=== PATIENT | male | born 1970 | race African-American/Black ===

== ENCOUNTER 2024-05-04 17:31 | Inpatient (IN) | payer OTHER ==
[2024-05-04 18:32] LABS: Absolute Eosinophils 0.1 K/uL (0-0.5); Absolute Monocytes 0.6 K/uL (0.1-1.3); Absolute Neutrophil 5.9 K/uL (1.8-8.0); Anion Gap 8.5 mEq/L (5.0-15.0); Basophils % 0.4 % (0-1.3); Eosinophils % 1.9 % (0-4.4); Hematocrit 40.5 % (39.6-49.0); Hemoglobin 13.5 g/dL (13.6-17.9); Lymphocytes % 12.8 % (15.3-44.8); MCHC 33.2 g/dL (32.0-36.0); MCV 90.4 fL (80-100); MPV 7.8 fL (7.6-11.3); Magnesium 2.1 mg/dL (1.6-2.4); Monocytes % 7.4 % (3.3-12.3); Neutrophils % 77.5 % (41.7-73.7); Nucleated Red Blood Cells % 0.1 % (0-0); Platelets 181 thou/uL (152-406); Potassium 3.5 mEq/L (3.5-5.1); RBC Red Blood Cell Count 4.49 M/uL (4.33-5.43); Red Cell Distribution Width 15.4 % (12.1-15.2)
--- NOTE | 2024-05-04 19:21 | RAD REPORT ---
EXAMINATION: MRI BRAIN WITHOUT CONTRAST CLINICAL INDICATION: Male, 53 years old. WEAKNESS TECHNIQUE: Multiplanar multisequence MR images of the brain were obtained without intravenous contras t. Unless otherwise specified, incidental findings do not require dedicated imaging follow-up. [id number]. COMPARISON: No prior exam. FINDINGS: INTRACRANIAL: Moderate volume of likely late acute infarct present within the medial right frontal lo be in a distribution consistent with the anterior cerebral artery. The area of infarct has increased T2 hyperintensity and gyral edema. There is some subtle T2 hypointensity around the areas o f infarct that may reflect changes of early petechial hemorrhage. No left-sided infarcts identified. No hydrocephalus. No mass effect or midline shift. VASCULATURE: Possible absent right HAYDE flow void. The flow voids are intact. SINUSES: The paranasal sinuses and mastoid air cells are predominantly clear. BONE: The marrow signal pattern is within normal limits. IMPRESSION: Moderate-sized acute infarct centered in the medial right frontal lobe in a distribution of the right anterior cerebral artery. Suspect late acute/early subacute infarct. Question absent right A2 HAYDE flow void. CTA or MRA could confirm.
--- NOTE | 2024-05-04 19:29 | EDPHYS ---
Physician Documentation [facility] Name: Salvador Dunlap Age: 53 yrs Sex: Male : 1970 Arrival Date: 05/04/2024 Time: 17:31 Bed 2 Private MD: ED Physician Tamir Serrano HPI: 05/04 18:19 This 53 yrs old Black Male presents to ER via EMS with complaints of Weakness - left rn side. 18:19 The patient presents to the emergency department with weakness of the left lower rn extremity. Onset: The symptoms/episode began/occurred 6 day(s) ago. Severity of symptoms: At their worst the symptoms were moderate in the emergency department the symptoms are unchanged. The patient has experienced a previous episode. Patient reports left leg weakness that began 6 days ago. Not improving. Difficulty walking because of weakness. Denies weakness or numbness of the left upper extremity or face. No speech problem. No vision changes. No head injury. Patient reports has had a history of this happening once before, happened years ago and was attributed to pinched nerve in the back. Patient states he recovered after about 6 weeks of using crutches. No history of stroke or heart attack.. Historical: - Allergies: 17:39 FLORIAN INHIB[employer]ORS; ph - Home Meds: 17:39 sertraline 100 mg oral tablet 2 tabs daily [Active]; amlodipine 10 mg tablet 1 tab ph daily [Active]; hydrochlorothiazide 25 mg Oral tablet daily [Active]; losartan 100 mg oral tablet daily [Active]; metoprolol succinate 100 mg oral Tablet, Extended Release 24 hr 1 tab daily [Active]; - PMHx: 17:39 Hypertensive disorder; Depressive disorder; ph - Immunization history:: Adult Immunizations up to date. - Infectious Disease History:: Denies. - Social history:: Smoking status: unknown. - Family history:: not pertinent. - Hospitalizations: : No recent hospitalization is reported. ROS: 18:19 Constitutional: Negative for fever, chills, and weight loss, Neck: Negative for injury, rn pain, and swelling, Cardiovascular: Negative for chest pain, palpitations, and edema, Respiratory: Negative for shortness of breath, cough, wheezing, and pleuritic chest pain, Abdomen/GI: Negative for abdominal pain, nausea, vomiting, diarrhea, and constipation, Back: Negative for injury and pain, MS/Extremity: Negative for injury and deformity, Neuro: Positive for weakness of the left leg Exam: 18:19 Constitutional: This is a well developed, well nourished patient who is awake, alert, rn and in no acute distress. Cardiovascular: Regular rate and rhythm. No pulse deficits. MS/ Extremity: Pulses equal, no cyanosis. Neuro: Awake and alert, slow to respond but gives appropriate answers, GCS 15, oriented to person, place, time, and situation. Cranial nerves II-XII grossly intact. Motor strength 4/5 in all extremities except for left lower extremity which cannot be lifted off of bed and slightly decreased left medical claims examiner strength of left arm. Sensory grossly intact. Vital Signs: 17:33 BP 146 / 93; Pulse 87; Resp 18; Temp 97.5; Pulse Ox 97% on R/A; Weight 95.25 kg; Height ph 6 ft. 0 in. ; 19:50 BP 129 / 93; Pulse 72; Resp 16 S; Temp 98.3(TE); Pulse Ox 97% on R/A; Pain 3/10; mt4 20:30 BP 122 / 78; Pulse 67; Resp 16; Pulse Ox 100% on R/A; Pain 0/10; mt4 22:30 BP 137 / 91; Pulse 68; Resp 18; Pulse Ox 100% on R/A; Pain 0/10; mt4 17:33 Body Mass Index 28.48 (95.25 kg, 182.88 cm) ph 19:50 Pain Scale: Adult mt4 20:30 Pain Scale: Adult mt4 22:30 Pain Scale: Adult mt4 NIH Stroke Scale Scores: 18:18 NIHSS Score: 2 ph 19:35 NIHSS Score: 5 rn [place] Coma Score: 19:50 Eye Response: spontaneous(4). Motor Response: obeys commands(6). Verbal Response: mt4 oriented(5). Total: 15. MDM: 17:39 Patient medically screened. rn 19:26 Data reviewed: vital signs, nurses notes, lab test result(s), radiologic studies, CT rn scan, MRI, and as a result, I will discharge patient. Consideration of Admission/Observation Patient was admitted/placed on observation. Escalation of care including admission/observation considered. Care significantly affected by the following chronic conditions: Hypertension. Counseling: I had a detailed discussion with the patient and/or guardian regarding the historical points, exam findings, and any diagnostic results supporting the discharge/admit diagnosis, lab results, radiology results, the need for further work-up and treatment in the hospital, the need to transfer to another facility, for higher level of care, [facility] does not immediately have the required specialist. ED course: Patient with subacute stroke, per report and patient's story possibly 6 days into his stroke. Is ischemic but moderate-sized. No previous stroke or stroke workup. Will attempt transfer to [facility] for stroke workup as patient is a prisoner and under managed care.. 19:48 ED course: Patient with subacute stroke on MRI. Attempted transfer to [facility] as patient rn is presenter. [facility] system does not have any open beds, they state to admit for stroke workup at our facility if capable and then patient can be discharged to nursing home after workup and medication optimization. Spoke with Dr. Pollard and takes patient for admission for stroke workup and neuroconsult.. 05/04 17:44 Order name: CBC with Diff; Complete Time: 18:54 rn 05/04 17:44 Order name: Basic Metabolic Panel; Complete Time: 18:54 rn 05/04 17:44 Order name: Magnesium; Complete Time: 18:54 rn 05/04 19:59 Order name: Urinalysis w/ reflexes [facility] 05/04 19:59 Order name: Basic Metabolic Panel [facility] 05/04 19:59 Order name: CBC with Automated Diff [facility] 05/04 19:59 Order name: CBC with Automated Diff [facility] 05/04 19:59 Order name: Lipid Profile [facility] 05/04 19:59 Order name: Lipid Profile [facility] 05/04 20:20 Order name: Urinalysis w/ reflexes [facility] 05/04 20:27 Order name: Hemoglobin A1c; Complete Time: 03:44 [facility] 05/04 20:28 Order name: ABG Arterial Blood Gas; Complete Time: 03:44 [facility] 05/04 20:28 Order name: Ammonia; Complete Time: 03:44 [facility] 05/04 20:28 Order name: Lactate w/ 2H reflex if indic.; Complete Time: 03:44 [facility] 05/04 20:28 Order name: Troponin High Sensitivity; Complete Time: 03:44 [facility] 05/05 04:07 Order name: Glucose, Ancillary Testing [facility] 05/04 17:54 Order name: Brain Wo Cont MRI; Complete Time: 19:26 rn 05/04 17:54 Order name: MRI Lumbar Spine wo Con; Complete Time: 19:52 rn 05/04 20:20 Order name: Echo with Doppler [facility] 05/04 22:27 Order name: Head angio [facility] 05/04 22:27 Order name: Neck Angio [facility] 05/04 20:28 Order name: Occupational Therapy Consult [facility] 05/04 20:28 Order name: Physical Therapy Consult [facility] 05/04 20:28 Order name: Speech Therapy Consult [facility] 05/05 03:44 Order name: EKG; Complete Time: 03:44 sp4 05/04 17:44 Order name: IV Start; Complete Time: 18:17 rn 05/04 17:44 Order name: Cardiac monitoring; Complete Time: 18:17 rn 05/04 17:44 Order name: O2 Sat Monitoring; Complete Time: 17:49 rn 05/05 03:44 Order name: EKG - Nurse/Tech; Complete Time: 03:50 sp4 Administered Medications: 19:49 Drug: Aspirin PO 325 mg PO once Route: PO; mt4 22:30 Follow up: Response: No adverse reaction mt4 19:49 Drug: foLIC Acid IVPB 1 mg IVPB once Route: IVPB; Site: right antecubital; mt4 22:29 Follow up: Response: No adverse reaction mt4 22:29 Follow up: IV Status: Completed infusion kb3 19:49 Drug: NS 0.9% IV 1000 ml IV at 1000 ml once; to be given as a bolus over 60 minutes mt4 Route: IV; Rate: 1000 ml; Site: right antecubital; 22:29 Follow up: Response: No adverse reaction; IV Status: Completed infusion; IV Intake: mt4 1000ml Point of Care Testing: Blood Glucose: 05/05 05:26 Blood Glucose: 129 mg/dL; mt4 Ranges: Critical Glucose Levels:Adult <50 mg/dl or >400 mg/dl <40 mg/dl or >180 mg/dl Disposition Summary: 05/04/24 19:52 Hospitalization Ordered Notes: Hospitalization Status: Inpatient Admission rn Provider: Prince Latrice rn Condition: Stable(05/04/24 19:52) rn Problem: new(05/04/24 19:52) rn Symptoms: are unchanged(05/04/24 19:52) rn Bed/Room Type: Standard rn Location: Telemetry/MedSurg (Inpatient)(05/05/24 02:29) ha1 Room Assignment: 219(05/05/24 02:29) ha1 Diagnosis - Cerebral infarction, unspecified(05/04/24 19:52) rn - Weakness(05/04/24 19:52) rn Forms: - Medication Reconciliation Form rn - SBAR form rn - Leadership Thank You Letter rn NIH Stroke Scale - NIH Stroke Score Date: 05/04/2024 Time: 18:18 Total Score = 2 10. Dysarthria (speech clarity - read or repeat words) - 0(Normal) 11. Extinction and Inattention (visual/tactile/auditory/spatial/personal) - 0(No abnormality) 1a. Level of Consciousness (LOC) - 0(Alert) 1b. Level of Consciousness (LOC) (Month \T\ Age) - 0(Both) 1c. LOC Commands (Open \T\ Closes Eyes/Packing And Shipping Clerk) - 0(Both) 2. Best Gaze (Lateral Gaze Paresis) - 0(Normal) 3. Visual Field Loss - 0(No visual loss) 4. Facial Palsy - 0(Normal) 5a. Left Arm: Motor (10-second hold) - 1(Drift) 5b. Right Arm: Motor (10-second hold) - 1(Drift) 6a. Left Leg: Motor (5-second hold - always test supine) - 0(No drift) 6b. Right Leg: Motor (5-second hold - always test supine) - 0(No drift) 7. Limb Ataxia (finger/nose \T\ heel/glez - test with eyes open) - 0(Absent) 8. Sensory Loss (pinprick arms/legs/face) - 0(Normal) 9. Best Language: Aphasia (description/naming/reading) - 0(No aphasia) Initials: ph NIH Stroke Scale - NIH Stroke Score Date: 05/04/2024 Time: 19:35 Total Score = 5 10. Dysarthria (speech clarity - read or repeat words) - 0(Normal) 11. Extinction and Inattention (visual/tactile/auditory/spatial/personal) - 0(No abnormality) 1a. Level of Consciousness (LOC) - 1(Not Alert) 1b. Level of Consciousness (LOC) (Month \T\ Age) - 0(Both) 1c. LOC Commands (Open \T\ Closes Eyes/Packing And Shipping Clerk) - 0(Both) 2. Best Gaze (Lateral Gaze Paresis) - 0(Normal) 3. Visual Field Loss - 0(No visual loss) 4. Facial Palsy - 0(Normal) 5a. Left Arm: Motor (10-second hold) - 1(Drift) 5b. Right Arm: Motor (10-second hold) - 0(No drift) 6a. Left Leg: Motor (5-second hold - always test supine) - 3(No effort against gravity) 6b. Right Leg: Motor (5-second hold - always test supine) - 0(No drift) 7. Limb Ataxia (finger/nose \T\ heel/glez - test with eyes open) - 0(Absent) 8. Sensory Loss (pinprick arms/legs/face) - 0(Normal) 9. Best Language: Aphasia (description/naming/reading) - 0(No aphasia) Initials: rn Signatures: Dispatcher [employer] EDMS Tamir Serrano MD MD rn Hall, Patricia, RN RN ph Ayala, Heidy, RN RN ha1 Otis Sands MD MD sp4 Pia Erickson RN RN mt4 Elo Thompson RN kb3 Corrections: (The following items were deleted from the chart) 05/04 17:44 17:44 Head Brain Wo Cont+CT.RAD.BRZ ordered. EDMS EDMS 17:45 17:44 Spine Lumbar Wo Con+CT.RAD.BRZ ordered. EDMS EDMS 17:45 17:45 CBC+H.LAB.BRZ ordered. EDMS EDMS 17:45 17:45 BASIC METABOLIC PANEL+C.LAB.BRZ ordered. EDMS EDMS 17:45 17:45 MAGNESIUM+C.LAB.BRZ ordered. EDMS EDMS 19:28 18:19 Constitutional: This is a well developed, well nourished patient who is rn awake, alert, and in no acute distress. Cardiovascular: Regular rate and rhythm. No pulse deficits. MS/ Extremity: Pulses equal, no cyanosis. Neuro: Awake and alert, slow to respond but gives appropriate answers, GCS 15, oriented to person, place, time, and situation. Cranial nerves II-XII grossly intact. Motor strength 4/5 in all extremities except for left lower extremity which cannot be lifted off of bed. Sensory grossly intact. rn 19:28 rn rn 19:28 [facility]-System rn rn 19:28 Higher level of care rn rn 19:28 Stable rn rn 19:28 new rn rn 19:28 are unchanged rn rn 19:28 Cerebral infarction, unspecified rn rn 19:28 Weakness rn rn 05/05 00:44 05/04 19:52 Telemetry/MedSurg (Inpatient) rn ha1 05/05 00:44 05/04 19:52 rn ha1 05/05 02:29 00:44 [facility] ER HOLD ha1 ha1 02: 00:44 ERHOLD- ha1 ha1
--- NOTE | 2024-05-04 19:29 | ER ---
Nurse's Notes [facility] Name: Salvador Dunlap Age: 53 yrs Sex: Male : 1970 Arrival Date: 05/04/2024 Time: 17:31 Bed 2 Private MD: Diagnosis: Cerebral infarction, unspecified;Weakness Presentation: 05/04 17:33 Chief complaint: EMS states: Pt [facility], c/o L sided weakness and difficulty ph ambulating x 6 days, VSS. Coronavirus screen: Vaccine status: Patient reports receiving the 2nd dose of the covid vaccine. Ebola Screen: No symptoms or risks identified at this time. No acute neurological deficit is noted. Pre-hospital glucose is not applicable to this patient. Initial Sepsis Screen: Does the patient meet any 2 criteria? No. Patient's initial sepsis screen is negative. Does the patient have a suspected source of infection? No. Patient's initial sepsis screen is negative. Risk Assessment: Do you want to hurt yourself or someone else? Patient reports no desire to harm self or others. Onset of symptoms was May 04, 2024. 17:33 Method Of Arrival: EMS: [facility] 17:33 Acuity: HOME 3 ph Triage Assessment: 17:42 The onset of the patients symptoms was April 28, 2024 at 12:00. General: Appears in ph no apparent distress. Behavior is calm, cooperative, quiet. Pain: Denies pain. Neuro: Level of Consciousness is awake, alert, obeys commands, Oriented to person, place, time, situation, Reports weakness in left arm and left leg. Cardiovascular: Capillary refill < 3 seconds in bilateral fingers Patient's skin is warm and dry. Respiratory: Airway is patent Respiratory effort is even, unlabored. Derm: Skin is pink, warm \T\ dry. Stroke Activation: Symptom onset > 6 hours Physician: ED Attending; Name: ; Notified At: ; Arrived At: Physician: Mid-Level Provider; Name: ; Notified At: ; Arrived At: Physician: [not used]; Name: ; Notified At: ; Arrived At: Physician: [not used]; Name: ; Notified At: ; Arrived At: Physician: [not used]; Name: ; Notified At: ; Arrived At: Historical: - Allergies: 17:39 FLORIAN INHIBITORS; ph - Home Meds: 17:39 sertraline 100 mg oral tablet 2 tabs daily [Active]; amlodipine 10 mg tablet 1 tab ph daily [Active]; hydrochlorothiazide 25 mg Oral tablet daily [Active]; losartan 100 mg oral tablet daily [Active]; metoprolol succinate 100 mg oral Tablet, Extended Release 24 hr 1 tab daily [Active]; - PMHx: 17:39 Hypertensive disorder; Depressive disorder; ph - Immunization history:: Adult Immunizations up to date. - Infectious Disease History:: Denies. - Social history:: Smoking status: unknown. - Family history:: not pertinent. - Hospitalizations: : No recent hospitalization is reported. Screenin:19 [facility] ED Fall Risk Assessment (Adult) History of falling in the last 3 months, ph including since admission No falls in past 3 months (0 pts) Confusion or Disorientation No (0 pts) Intoxicated or Sedated No (0 pts) Impaired Gait Yes (1 pt) Mobility Assist Device Used No (0 pt) Altered Elimination No (0 pt) Score/Fall Risk Level 0 - 2 = Low Risk Oriented to surroundings, Maintained a safe environment, Hourly rounding (assess needs \T\ fall precautionary measures) done. Abuse screen: Denies threats or abuse. Denies injuries from another. Nutritional screening: No deficits noted. Tuberculosis screening: No symptoms or risk factors identified. Assessment: 18:18 VAN Scoring: Arm Drift: Minor drift Visual Disturbance: No visual disturbance noted. [facility] Swallow Protocol Exclusion Criteria: Unable to remain alert for testing: No NPO for medical/surgical reason by provider order No Tracheostomy tube present No No thin liquids due to preexisting dysphagia/baseline modified diet thickened liquids No Exclusion Criteria Result: Proceed Brief Cognitive Screen What is your name? Normal, Where are you right now? Normal, What year is it? Normal. Oral Mechanism Examination Facial Symmetry: Normal, Motion: Normal, Lip Closure: Normal, Oral Mechanism Result: Normal. 3 oz Water Swallow Challenge: Pt able to drink all water without stopping, coughing, choking or throat clearing: Yes Result: CECIL MALONEY Notified: Tamir Serrano MD. TNKase (Tenecteplase) Screening: Contraindications: Patient reports onset of signs and symptoms of stroke greater than 6 hours ago: Yes. 18:20 General: SEE TRIAGE ASSESSMENT. ph 19:50 General: Appears in no apparent distress. comfortable, Behavior is calm. Pain: mt4 Complains of pain in back Quality of pain is described as aching. Neuro: Level of Consciousness is awake, alert, obeys commands, Oriented to person, place, time, situation, Upfitter are weak on left Speech is normal, Facial symmetry appears normal. Cardiovascular: Capillary refill < 3 seconds Patient's skin is warm and dry. Respiratory: Airway is patent Respiratory effort is even, unlabored, Respiratory pattern is regular, symmetrical. GI: No signs and/or symptoms were reported involving the gastrointestinal system. : No signs and/or symptoms were reported regarding the genitourinary system. Derm: Skin is intact, Skin is dry, Skin is pink, warm \T\ dry. Skin temperature is warm. Musculoskeletal: Range of motion: limited in left knee and left ankle. 05/05 03:09 Reassessment: notified hospitalist Latrice obando mt4 Vital Signs: 05/04 17:33 BP 146 / 93; Pulse 87; Resp 18; Temp 97.5; Pulse Ox 97% on R/A; Weight 95.25 kg; Height ph 6 ft. 0 in. ; 19:50 BP 129 / 93; Pulse 72; Resp 16 S; Temp 98.3(TE); Pulse Ox 97% on R/A; Pain 3/10; mt4 20:30 BP 122 / 78; Pulse 67; Resp 16; Pulse Ox 100% on R/A; Pain 0/10; mt4 22:30 BP 137 / 91; Pulse 68; Resp 18; Pulse Ox 100% on R/A; Pain 0/10; mt4 17:33 Body Mass Index 28.48 (95.25 kg, 182.88 cm) ph 19:50 Pain Scale: Adult mt4 20:30 Pain Scale: Adult mt4 22:30 Pain Scale: Adult mt4 Viola Coma Score: 19:50 Eye Response: spontaneous(4). Motor Response: obeys commands(6). Verbal Response: mt4 oriented(5). Total: 15. NIH Stroke Scale Scores: 18:18 NIHSS Score: 2 ph 19:35 NIHSS Score: 5 corporate intern Course: 17:32 Patient arrived in ED. ph 17:39 Tamir Serrano MD is Attending Physician. rn 17:39 Triage completed. ph 17:43 Arm band placed on Patient placed in an exam room, on a stretcher. ph 18:17 Annalise Hensley RN is Primary Nurse. ph 18:17 CBC with Diff Sent. ph 18:17 Basic Metabolic Panel Sent. ph 18:17 Magnesium Sent. ph 18:17 Initial lab(s) drawn, by me, sent to lab. Missed attempt(s): 22 gauge in left ph antecubital area. Bleeding controlled, band aid applied, catheter tip intact. Inserted saline lock: 20 gauge in right antecubital area, using aseptic technique. Blood collected. Flushed with 10 mL NS. 18:20 Patient has correct armband on for positive identification. Bed in low position. Call ph light in reach. Side rails up X2. Guards at bedside. residential monitor on. Pulse ox on. NIBP on. 19:05 Brain Wo Cont MRI In Process Unspecified. EDMS 19:05 MRI Lumbar Spine wo Con In Process Unspecified. EDMS 19:35 initiated transfer with [facility]. spoke with Eulalia. vk 19:37 Per transfer center there are no available Med/Tele beds and we could transfer patient vk to a different facility to please call back with facility of choice. 19:50 No apparent distress. Resting quietly. mt4 19:50 Provided Education on: medication education . Client placed on continuous cardiac and mt4 pulse oximetry monitoring. NIBP monitoring applied. residential monitor on. Pulse ox on. Lights dimmed. Warm blanket given. Pillow given. Verbal reassurance given. Head of bed elevated. 19:50 No provider procedures requiring assistance completed. IV is intact, with fluids mt4 infusing freely. Patient maintains SpO2 saturation greater than 95% on room air. 19:52 Prince Pollard MD is Hospitalizing Provider. rn 05/05 00:01 authorization number to admit [id number] per [facility] transfer center spoke with chidi. vk 05:26 Patient admitted, IV remains in place. mt4 Administered Medications: 05/04 19:49 Drug: Aspirin PO 325 mg PO once Route: PO; mt4 22:30 Follow up: Response: No adverse reaction mt4 19:49 Drug: foLIC Acid IVPB 1 mg IVPB once Route: IVPB; Site: right antecubital; mt4 22:29 Follow up: Response: No adverse reaction mt4 22:29 Follow up: IV Status: Completed infusion kb3 19:49 Drug: NS 0.9% IV 1000 ml IV at 1000 ml once; to be given as a bolus over 60 minutes mt4 Route: IV; Rate: 1000 ml; Site: right antecubital; 22:29 Follow up: Response: No adverse reaction; IV Status: Completed infusion; IV Intake: mt4 1000ml Medication: 18:20 VIS not applicable for this client. ph Point of Care Testing: Blood Glucose: 05/05 05:26 Blood Glucose: 129 mg/dL; mt4 Ranges: Intake: 05/04 22:29 IV: 1000ml; Total: 1000ml. mt4 Outcome: 19:28 ER care complete, transfer ordered by . rn 19:52 Decision to Hospitalize by Provider. rn 05/05 05:26 Admitted to Med/surg mt4 Admitted to Med/surg accompanied by nurse, via stretcher, room 219, Condition: stable Instructed on the need for admit, 05:27 Patient left the ED. mt4 NIH Stroke Scale - NIH Stroke Score Date: 05/04/2024 Time: 18:18 Total Score = 2 10. Dysarthria (speech clarity - read or repeat words) - 0(Normal) 11. Extinction and Inattention (visual/tactile/auditory/spatial/personal) - 0(No abnormality) 1a. Level of Consciousness (LOC) - 0(Alert) 1b. Level of Consciousness (LOC) (Month \T\ Age) - 0(Both) 1c. LOC Commands (Open \T\ Closes Eyes/Business Planning Manager) - 0(Both) 2. Best Gaze (Lateral Gaze Paresis) - 0(Normal) 3. Visual Field Loss - 0(No visual loss) 4. Facial Palsy - 0(Normal) 5a. Left Arm: Motor (10-second hold) - 1(Drift) 5b. Right Arm: Motor (10-second hold) - 1(Drift) 6a. Left Leg: Motor (5-second hold - always test supine) - 0(No drift) 6b. Right Leg: Motor (5-second hold - always test supine) - 0(No drift) 7. Limb Ataxia (finger/nose \T\ heel/glez - test with eyes open) - 0(Absent) 8. Sensory Loss (pinprick arms/legs/face) - 0(Normal) 9. Best Language: Aphasia (description/naming/reading) - 0(No aphasia) Initials: dayan NIH Stroke Scale - NIH Stroke Score Date: 05/04/2024 Time: 19:35 Total Score = 5 10. Dysarthria (speech clarity - read or repeat words) - 0(Normal) 11. Extinction and Inattention (visual/tactile/auditory/spatial/personal) - 0(No abnormality) 1a. Level of Consciousness (LOC) - 1(Not Alert) 1b. Level of Consciousness (LOC) (Month \T\ Age) - 0(Both) 1c. LOC Commands (Open \T\ Closes Eyes/Business Planning Manager) - 0(Both) 2. Best Gaze (Lateral Gaze Paresis) - 0(Normal) 3. Visual Field Loss - 0(No visual loss) 4. Facial Palsy - 0(Normal) 5a. Left Arm: Motor (10-second hold) - 1(Drift) 5b. Right Arm: Motor (10-second hold) - 0(No drift) 6a. Left Leg: Motor (5-second hold - always test supine) - 3(No effort against gravity) 6b. Right Leg: Motor (5-second hold - always test supine) - 0(No drift) 7. Limb Ataxia (finger/nose \T\ heel/glez - test with eyes open) - 0(Absent) 8. Sensory Loss (pinprick arms/legs/face) - 0(Normal) 9. Best Language: Aphasia (description/naming/reading) - 0(No aphasia) Initials: rn Signatures: Dispatcher [employer] Tamir Boykin MD MD rn Hall, Patricia, RN RN ph Bradberry, Kelly, NEMO RN 3 April Slater Molinec, RN RN mt4
[2024-05-04] MEDS ORDERED: ASPIRIN 325 MG TAB ONE ×2 (19:34→19:44)
[2024-05-04] MEDS ORDERED: FOLIC ACID 5 MG/ML VIAL ONE (19:35)
[2024-05-04] MEDS ORDERED: NA CHLORIDE 0.9% 1,000 ML ONE (19:36)
--- NOTE | 2024-05-04 19:49 | RAD REPORT ---
EXAMINATION: Lumbar Spine Wo Con CLINICAL INDICATION: Male, 53 years old. WEAKNESS TECHNIQUE: Multiplanar multisequence MR images were obtained of the lumbar spine without intravenous contrast. Unless otherwise specified, incidental findings do not require dedicated imaging follow-up. [id number]. COMPARISON: No prior exam. FINDINGS: For purposes of this dictation, it is assumed that there are 5 non rib-bearing lumbar type vertebrae, and the most caudal fully segmented lumbar vertebra is labeled L5. ALIGNMENT: The lumbar spine has normal alignment. BONE: Vertebral bodies are normal in height. Heterogeneous marrow signal.. CORD: No abnormal signal in the cord. The conus medullaris terminates at a normal level. The nerve ro ots of the cauda equina appear normal. SOFT TISSUE: The included paraspinal soft tissues and retroperitoneal structures are grossly normal. EVALUATION OF THE INDIVIDUAL LEVELS: L1-L2 :Disc is normal in height and signal intensity. No significant spinal canal or neural foraminal stenosis. L2-L3: Disc is normal in height and signal intensity. No significant spinal canal or neural foraminal stenosis. L3-L4: Disc is normal in height and signal intensity. No significant spinal canal or neural foraminal stenosis. L4-L5: Broad-based disc bulge with facet and ligamentum flavum hypertrophy results in moderate centr al spinal stenosis. Bilateral subarticular zone stenosis, left greater than right. Both neural foramen are moderately narrowed. L5-S1: Broad-based disc bulge with facet and ligamentum flavum hypertrophy without significant centra l spinal stenosis. The left neural foramen is severely narrowed. The right neural foramen has moderate to severe narrowing. IMPRESSION: Multilevel degenerative disc disease which is most advanced at L4-5 where there is moderate central s asaf stenosis, moderate bilateral neural foraminal narrowing, and subarticular zone narrowing. There is also severe left neural foraminal narrowing at L5-S1. Either level could explain a left-side d radiculopathy. The patient is known to have a moderate sized right HAYDE infarct which is the likely etiology if left sided weakness is acute.
[2024-05-04] MEDS ORDERED: ONDANSETRON 4 MG/2 ML VIAL IV PRN (19:54)
--- NOTE | 2024-05-04 20:24 | P.HP ---
Certification for Inpatient Patient admitted to: Observation With expected LOS: <2 Midnights Practitioner: I am a practitioner with admitting privileges, knowledge of patient current condition, hospital course, and medical plan of care. Services: Services provided to patient in accordance with Admission requirements found in Title 42 Section 412.3 of the Code of Federal Regulations Patient History Date of Service: 05/04/24 Reason for admission: CVA History of Present Illness: Patient is a 53-year-old -[place] male currently in custody. He presented to the ER with left-sided weakness ongoing for more than 6 hours. Patient was only brought in today for evaluation. As per ER signout, this began 6 days ago. Patient has been having difficulty walking because of weakness. Workup in the ER revealed a subacute stroke. His vital signs were stable including a blood pressure 146/93. During my evaluation, patient was very lethargic. According to elicit any response. Allergies FLORIAN Inhibitors Allergy (Unknown, Verified 05/04/24 21:43) Itching/Hives/Rash Physical Examination - Physical Exam General: Other (Somnolent and lethargic) HEENT: Atraumatic, Normocephalic Respiratory: Clear to auscultation bilaterally, Normal air movement Cardiovascular: No edema, Normal pulses, Regular rate/rhythm, Systolic murmur Musculoskeletal: No clubbing, No swelling, No contractures, No erythema, No tenderness Neurological: Abnormal speech, Abnormal strength - Studies Laboratory Data (last 24 hrs) 05/04/24 05/04/24 18:15 18:15 WBC 7.70 Hgb 13.5 L Hct 40.5 Plt Count 181 Sodium 138 Potassium 3.5 BUN 21 H Creatinine 0.93 Glucose 130 H Magnesium 2.1 Assessment and Plan - Problems (Diagnosis) (1) CVA (cerebral vascular accident) Current Visit: Yes Status: Acute - Plan Assessment This is a 53-year-old male presenting with left-sided weakness that started 6 days ago. Brain MRI revealed a moderately sized acute infarct involving the right frontal lobe in the anterior cerebral artery distribution. Patient continued to have left lower extremity weakness, which the radiologist attributes to his acute stroke. He also had a lumbar MRI which revealed severe lumbar stenosis. 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
[2024-05-04] MEDS: ATORVASTATIN 80 MG TAB PO SCH (21:00)
[2024-05-04] MEDS: D5 0.45 NS 1,000 ML IV SCH (21:00)
[2024-05-04 21:28] LABS: Arterial Blood Carboxyhemoglob 0.9 % (0-1.5); Blood Gas Oxyhemoglobin 93.1 % (94-97); Blood Gas THB 12.7 g/dl (12-18); Blood O2 Saturation 94.7 % (92-98.5)
[2024-05-05] MEDS: HEPARIN 5000 UNIT/ML 1 ML VIAL SQ SCH (01:00)
[2024-05-05] MEDS ORDERED: HEPARIN 5000 UNIT/ML 1 ML VIAL ONE (03:19)
[2024-05-05] MEDS ORDERED: ATORVASTATIN 40 MG TAB ONE (03:19)
[2024-05-05 04:13] VITALS: BMI 31.4
[2024-05-05 05:39] LABS: Renal Epithelial <5 /HPF (None Seen); Sqamous Epithelial <5 /HPF (None Seen); Urine Bacteria None Seen /HPF (<20); Urine Bilirubin NEGATIVE (Negative); Urine Blood Negative (Negative); Urine Clarity Clear (Clear); Urine Color Yellow (Yellow); Urine Culture Reflex Order NOT NEEDED; Urine Glucose NEGATIVE (Negative); Urine Ketones NEGATIVE (Negative); Urine Microscopic Reflex YN ORDER UMIC; Urine Mucus Slight /HPF (None Seen); Urine Nitrite NEGATIVE (Negative); Urine Protein 1+ (Negative); Urine RBC <5 /HPF (None Seen); Urine Urobilinogen 1+ (Normal); Urine WBC <5 /HPF (<5)
[2024-05-05 05:40] LABS: Specific Gravity > 1.030 (1.005-1.030)
[2024-05-05 05:48] LABS: Absolute Eosinophils 0.3 K/uL (0-0.5); Absolute Lymphocytes (CBC) 1.4 K/uL (0.7-4.9); Absolute Monocytes 0.6 K/uL (0.1-1.3); Absolute Neutrophil 4.3 K/uL (1.8-8.0); Basophils % 0.4 % (0-1.3); Eosinophils % 4.1 % (0-4.4); Hematocrit 35.9 % (39.6-49.0); Hemoglobin 11.8 g/dL (13.6-17.9); Lymphocytes % 20.7 % (15.3-44.8); MCH 29.6 pg (27.0-35.0); MCHC 32.8 g/dL (32.0-36.0); MCV 90.1 fL (80-100); MPV 8.5 fL (7.6-11.3); Monocytes % 9.2 % (3.3-12.3); Neutrophils % 65.6 % (41.7-73.7); Platelets 171 thou/uL (152-406); RBC Red Blood Cell Count 3.98 M/uL (4.33-5.43); Red Cell Distribution Width 15.4 % (12.1-15.2)
[2024-05-05 06:04] LABS: Anion Gap 6.7 mEq/L (5.0-15.0); Potassium 3.7 mEq/L (3.5-5.1)
--- NOTE | 2024-05-05 07:39 | RAD REPORT ---
EXAMINATION: CTA HEAD CLINICAL INDICATION: CVA TECHNIQUE: Axial CT images were obtained through the head after intravenous contrast utilizing angiog raphic protocol with 3D post-processing (maximum intensity projection images, volume rendered images and/or shaded surface rendered images). One or more of the following dose reduction technique s were used: Automated exposure control, adjustment of the mA and/or kV according to patient size, and/or iterative reconstruction. Unless otherwise specified, incidental findings do not require dedic ated imaging follow-up. COMPARISON: MRI brain 05/04/2024 FINDINGS: ICA: The petrous, cavernous, and supraclinoid segments of the bilateral internal carotid arteries are normal. The ophthalmic artery origins are visualized and normal. The posterior communicating arteries are patent. HAYDE: There is abrupt narrowing of the right A2 segment compatible with occlusion. Left A2 segment and anterior communicating artery are patent. MCA: Middle cerebral arteries are normal bilaterally. MATERIALS HANDLER: Posterior cerebral arteries are normal bilaterally. Vertebrobasilar: The vertebral arteries are patent. The basilar artery is normal in appearance. 3D images confirm these findings. IMPRESSION: Abrupt narrowing of the proximal right A1 segment compatible with occlusion.
--- NOTE | 2024-05-05 07:42 | RAD REPORT ---
EXAMINATION: CTA NECK CLINICAL INDICATION: CVA TECHNIQUE: Axial CT images were obtained from the aortic arch to the skull base after intravenous con trast utilizing angiographic protocol with 3D post-processing (maximum intensity projection images, volume rendered images and/or shaded surface rendered images). One or more of the following dose redu ction techniques were used: Automated exposure control, adjustment of the mA and/or kV according to patient size, and/or iterative reconstruction. Unless otherwise specified, incidental findings do not require dedicated imaging follow-up. 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 CCA: The common carotid arteries are patent and normal in caliber. ICA/ECA: Focal hard plaque is present right carotid bulb with estimated focal stenosis of 50%. Focal soft plaque is present in left carotid bulb with estimated stenosis of 40-50%. VERTEBRAL: The cervical vertebral arteries are patent. The vertebral arteries are codominant. SOFT TISSUE: No significant neck soft tissue abnormalities. The visualized lung apices are clear. 3D images confirm these findings. IMPRESSION: Mild bilateral carotid bulb stenosis as detailed above. NASCET criteria used. Mild 0-49% stenosis Moderate 50-69% stenosis Severe 70-99% stenosis
[2024-05-05] MEDS: AMLODIPINE 5 MG TAB PO ONE (12:11)
--- NOTE | 2024-05-05 13:39 | P.CNS ---
Date of Consult: 05/05/24 Chief Complaint: CVA History of Present Illness: Patient with PMH of Hypertension was admitted to the hospital with a stroke, cardiology was consulted for elevated troponin, patient denies having any active chest pain, report that he had one episode of chest pain last Wednesday, no pa lpitations, no dizzy spells, no syncope, no SOB, no BROOKS. Allergies FLORIAN Inhibitors Allergy (Unknown, Verified 05/04/24 21:43) Itching/Hives/Rash Home medications list reviewed: Yes Home Medications: Amlodipine [Norvasc*] 10 mg PO DAILY 05/05/24 Metoprolol/Hydrochlorothiazide [Metoprolol-Hctz 50-25 mg Tab] 50 mg PO DAILY 05/05/24 hydroCHLOROthiazide [Hydrochlorothiazide] 20 mg PO DAILY 05/05/24 - Past Medical/Surgical History Diabetic: No - Social History Smoking Status: Unknown if ever smoked Alcohol use: No CD- Drugs: No Caffeine use: No Review of Systems 10-point ROS is otherwise unremarkable Physical Examination Temp Pulse Resp BP Pulse Ox 98.5 F 77 16 148/92 H 97 05/05/24 12:08 05/05/24 12:11 05/05/24 12:08 05/05/24 12:11 05/05/24 12:08 General: Alert, In no apparent distress HEENT: Atraumatic, PERRLA, Mucous membr. moist/pink, EOMI, Sclerae nonicteric Neck: Supple, 2+ carotid pulse no bruit, No LAD, Without JVD or thyroid abnormality Respiratory: Clear to auscultation bilaterally, Normal air movement Cardiovascular: Regular rate/rhythm, Normal S1 S2 Gastrointestinal: Normal bowel sounds, No tenderness Musculoskeletal: No tenderness Integumentary: No rashes Neurological: Normal gait, Normal speech, Normal tone, Normal affect Lymphatics: No axilla or inguinal lymphadenopathy Laboratory Data (last 24 hrs) 05/04/24 05/04/24 18:15 18:15 WBC 7.70 Hgb 13.5 L Hct 40.5 Plt Count 181 Sodium 138 Potassium 3.5 BUN 21 H Creatinine 0.93 Glucose 130 H Magnesium 2.1 - Problems (1) NSTEMI (non-ST elevated myocardial infarction) Current Visit: Yes Status: Acute Plan: Troponin elevated but no significant delta, with no chest pain, echo is normal, EKG non specific. leak is most likely secondary to acute stroke, patient is having early petechial hemorrhage. typically patient will need to be anticoagulated with heparin ACS protocol and c oronary angiogram to delinate coronary anatomy would be advised but with recent stroke and higher risk of hemorrhagic conversion, we can hold on coronary angiogram especially patient is chest pain free and not hemodynaimcally stable. 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
--- NOTE | 2024-05-05 14:07 | EKG ---
Test Date: 2024-05-05 Test Time: 03:48:48 Him Specialist: FRANSICO MEASUREMENT RESULTS: Intervals: Rate: 80 LA: 146 QRSD: 88 QT: 384 QTc: 442 [place]: P: 67 LA: 146 QRS: 67 T: -15 INTERPRETIVE STATEMENTS: Normal sinus rhythm T wave abnormality, consider lateral ischemia Abnormal ECG No previous ECG available for comparison Electronically Signed On 05-05-24 14:06:15 CDT by Gaston Branch
--- NOTE | 2024-05-05 14:08 | P.PN ---
Subjective Date of Service: 05/05/24 Chief Complaint: CVA NSTEMI No change in patient's condition he has weakness of his left leg any chest pain shortness of breath Review of Systems 10-point ROS is otherwise unremarkable Physical Examination - Vital Signs Temperature: 98.5 F Blood Pressure: 148/92 Pulse: 77 Respirations: 16 Pulse Ox (%): 97 - Physical Exam General: Alert, In no apparent distress, Oriented x3 Respiratory: Clear to auscultation bilaterally Cardiovascular: No edema, Regular rate/rhythm Gastrointestinal: Normal bowel sounds, Soft and benign Musculoskeletal: No clubbing, No swelling Neurological: Normal speech, Normal strength at 5/5 x4 extr, Other (Weakness of the left leg) - Studies Laboratory Data (last 24 hrs) 05/04/24 05/04/24 18:15 18:15 WBC 7.70 Hgb 13.5 L Hct 40.5 Plt Count 181 Sodium 138 Potassium 3.5 BUN 21 H Creatinine 0.93 Glucose 130 H Magnesium 2.1 Assessment And Plan - Current Problems (Diagnosis) (1) Arterial ischemic stroke, MCA (middle cerebral artery), left, acute Current Visit: Yes Status: Acute Plan: Admitted with right middle cerebral artery acute stroke with left leg paralysis doing better taking with the plan to add Plavix and Lipitor (2) NSTEMI (non-ST elevated myocardial infarction) Current Visit: Yes Status: Acute Plan: Scheduled for a cardiac cath on Wednesday the beta-miki
--- NOTE | 2024-05-05 14:29 | ECHO ---
HEIGHT: 6 ft 0 in WEIGHT: 210 lb 0 oz DATE OF STUDY: 05/05/[address]: Prince Jennifer Pollard MD 2-DIMENSIONAL: YES M.MODE: YES DOPPLER: YES COLOR FLOW: YES TDS: NO PORTABLE: YES DEFINITY: NO BUBBLE STUDY: YES DIAGNOSIS: CEREBRAL VASCULAR ACCIDENT CARDIAC HISTORY: CATHERIZATION: SURGERY: PROSTHETIC VALVE: PACEMAKER: MEASUREMENTS (cm) DIASTOLIC (NORMALS) SYSTOLIC (NORMALS) IVSd 1.2 (0.6-1.2) LA Diam 3.4 (1.9-4.0) LVEF 60-65% LVIDd 4.7 (3.5-5.7) LVIDs 3.4 (2.0-3.5) %FS 28% LVPWd 1.6 (0.6-1.2) Ao Diam 3.1 (2.0-3.7) 2 DIMENSIONAL ASSESSMENT: RIGHT ATRIUM: NORMAL LEFT ATRIUM: NORMAL RIGHT VENTRICLE: NORMAL LEFT VENTRICLE: NORMAL TRICUSPID VALVE: NORMAL MITRAL VALVE: NORMAL PULMONIC VALVE: NORMAL AORTIC VALVE: NORMAL PERICARDIAL EFFUSION: NONE AORTIC ROOT: NORMAL LEFT VENTRICULAR WALL MOTION: NORMAL. DOPPLER/COLOR FLOW: NORMAL. COMMENTS: 1. NORMAL LEFT VENTRICULAR SYSTOLIC FUNCTION. LEFT VENTRICULAR EJECTION FRACTION 60-65%. NORMAL WALL MOTION. 2. NORMAL DIASTOLIC FUNCTION. 3. NEGATIVE SALINE BUBBLE STUDY. TECHNOLOGIST: BRO OROZCO
[2024-05-05] MEDS: FLU (Fluarix Triv) TS24-25(6MOS UP)/PF 45 MCG/0.5 ML Syringe IM ONE (15:08)
[2024-05-05] MEDS: METOPROLOL XL 25 MG TAB PO SCH (18:26)
[2024-05-05] MEDS: ATORVASTATIN 40 MG TAB PO SCH (20:18)
[2024-05-05] MEDS: HYDRALAZINE HCL 20 MG/ML VIAL IV PRN (21:35)
[2024-05-06] MEDS: ACETAMINOPHEN 325 MG TABLET PO PRN (04:18)
[2024-05-06] MEDS: CLOPIDOGREL 75 MG TABLET PO SCH (08:41)
[2024-05-06] MEDS: ENOXAPARIN 40 MG/0.4 ML SQ SCH (08:41)
--- NOTE | 2024-05-06 08:56 | P.PN ---
Subjective Date of Service: 05/06/24 Chief Complaint: CVA NSTEMI Patient doing well planing of pain in his left leg and in his wrist area the area of his handcuffs as he is eating and drinking very alert responsive cooperative oriented x 3 Review of Systems 10-point ROS is otherwise unremarkable Physical Examination - Vital Signs Temperature: 99 F Blood Pressure: 158/91 Pulse: 92 Respirations: 16 Pulse Ox (%): 96 - Physical Exam General: Alert, Oriented x3 Gastrointestinal: Normal bowel sounds, Soft and benign Musculoskeletal: Other (Left leg is still very weak) Integumentary: No rashes Neurological: Normal strength at 5/5 x4 extr, Cranial nerves 3-12 intact, Other (Left leg weakness speech impediment) Assessment And Plan - Current Problems (Diagnosis) (1) Arterial ischemic stroke, MCA (middle cerebral artery), left, acute Current Visit: Yes Status: Acute Plan: Patient admitted with a stroke he is currently doing better left leg is weak we will plan for physical therapy pressure control patient started on statins will need aggressive blood pressure control of added losartan with hydrochlorothiazide in addition to a beta-miki (2) NSTEMI (non-ST elevated myocardial infarction) Current Visit: Yes Status: Acute Plan: Scheduled for a cardiac cath on Wednesday the beta-miki
[2024-05-06] MEDS: ASPIRIN EC 81 MG TAB PO SCH (09:16)
[2024-05-06] MEDS: LOSARTAN/HCTZ 50-12.5 PO SCH (09:16)
[2024-05-07 05:02] LABS: Absolute Eosinophils 0.4 K/uL (0-0.5); Absolute Lymphocytes (CBC) 1.3 K/uL (0.7-4.9); Absolute Monocytes 0.7 K/uL (0.1-1.3); Absolute Neutrophil 5.7 K/uL (1.8-8.0); Basophils % 0.3 % (0-1.3); Eosinophils % 4.4 % (0-4.4); Hematocrit 39.2 % (39.6-49.0); Hemoglobin 13.1 g/dL (13.6-17.9); Lymphocytes % 16.2 % (15.3-44.8); MCH 29.9 pg (27.0-35.0); MCHC 33.5 g/dL (32.0-36.0); MCV 89.1 fL (80-100); MPV 8.4 fL (7.6-11.3); Monocytes % 8.2 % (3.3-12.3); Neutrophils % 70.9 % (41.7-73.7); Nucleated Red Blood Cells % 0.1 % (0-0); Platelets 209 thou/uL (152-406); Red Cell Distribution Width 14.9 % (12.1-15.2)
[2024-05-07 05:19] LABS: Albumin/Globulin Ratio 0.6 (1.1-1.8); Anion Gap 7.6 mEq/L (5.0-15.0); Globulin 4.9 g/dL (2.3-3.5); Potassium 3.6 mEq/L (3.5-5.1); Protein, Total 7.9 g/dL (6.4-8.2)
[2024-05-07 05:41] LABS: Troponin High Sensitivity 1886.3 pg/mL (<58.9)
--- NOTE | 2024-05-07 09:23 | P.PN ---
Subjective Date of Service: 05/07/24 Chief Complaint: CVA NSTEMI No change in patient's condition continues to remain stable denies any shortness of breath chest pain his left leg is still very weak Review of Systems 10-point ROS is otherwise unremarkable Physical Examination - Vital Signs Temperature: 97.7 F Blood Pressure: 137/74 Pulse: 67 Respirations: 16 Pulse Ox (%): 98 - Physical Exam General: Alert, Oriented x3, Cooperative Respiratory: Clear to auscultation bilaterally Cardiovascular: No edema, Regular rate/rhythm Gastrointestinal: Normal bowel sounds Musculoskeletal: No clubbing, No swelling Neurological: Other (Left leg continues to remain very weak) Assessment And Plan - Current Problems (Diagnosis) (1) Arterial ischemic stroke, MCA (middle cerebral artery), left, acute Current Visit: Yes Status: Acute Plan: Condition is stable no progression will need rehab (2) NSTEMI (non-ST elevated myocardial infarction) Current Visit: Yes Status: Acute Plan: Scheduled for a cardiac catheter today blood pressure is much stable on beta- miki troponin is declining
--- NOTE | 2024-05-07 12:33 | P.PN ---
Subjective Date of Service: 05/07/24 Chief Complaint: CVA NSTEMI Subjective: No new changes, No C/O voiced, Tolerating diet, Ambulating, Improving Review of Systems 10-point ROS is otherwise unremarkable Physical Examination - Vital Signs Temperature: 97.7 F Blood Pressure: 137/74 Pulse: 67 Respirations: 16 Pulse Ox (%): 98 - Physical Exam General: Alert, In no apparent distress HEENT: Atraumatic, PERRLA, EOMI Neck: Supple, JVD not distended Respiratory: Clear to auscultation bilaterally, Normal air movement Cardiovascular: Regular rate/rhythm, Normal S1 S2 Gastrointestinal: Normal bowel sounds, No tenderness Musculoskeletal: No tenderness Integumentary: No rashes Neurological: Normal speech, Normal tone, Normal affect Lymphatics: No axilla or inguinal lymphadenopathy - Studies Medications List Reviewed: Yes Assessment And Plan - Current Problems (Diagnosis) (1) NSTEMI (non-ST elevated myocardial infarction) Current Visit: Yes Status: Acute Plan: Troponin elevated and down trending, patient had a recent stroke but cleared for anticoagulation. 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 (2) HTN (hypertension) Current Visit: Yes Status: Acute Plan: continue toprol xl and losartan/hctz (3) HLD (hyperlipidemia) Current Visit: Yes Status: Acute Plan: continue lipitor 40 mg daily
[2024-05-08 07:33] LABS: Absolute Eosinophils 0.4 K/uL (0-0.5); Absolute Monocytes 0.5 K/uL (0.1-1.3); Absolute Neutrophil 5.3 K/uL (1.8-8.0); Basophils % 0.4 % (0-1.3); Eosinophils % 5.5 % (0-4.4); Hematocrit 40.3 % (39.6-49.0); Hemoglobin 13.4 g/dL (13.6-17.9); Lymphocytes % 13.9 % (15.3-44.8); MCH 29.7 pg (27.0-35.0); MCHC 33.2 g/dL (32.0-36.0); MCV 89.4 fL (80-100); MPV 7.9 fL (7.6-11.3); Neutrophils % 73.2 % (41.7-73.7); Nucleated Red Blood Cells % 0.1 % (0-0); Platelets 204 thou/uL (152-406); RBC Red Blood Cell Count 4.51 M/uL (4.33-5.43); Red Cell Distribution Width 15.1 % (12.1-15.2)
[2024-05-08 07:49] LABS: Albumin/Globulin Ratio 0.7 (1.1-1.8); Anion Gap 6.6 mEq/L (5.0-15.0); Bilirubin Total 0.6 mg/dL (0.2-1.0); Globulin 4.6 g/dL (2.3-3.5); Potassium 3.6 mEq/L (3.5-5.1); Protein, Total 7.6 g/dL (6.4-8.2)
[2024-05-08] MEDS: NA CHLORIDE 0.9% 500 ML ONE (09:56)
--- NOTE | 2024-05-08 10:58 | P.PN ---
Date of Service: 05/08/24 Subjective no complaint chest pain,recent CVA LUE/LLE weakness, NPO [facility] Review of Systems 10-point ROS is otherwise unremarkable Physical Examination - Vital Signs reviewed - Physical Exam General: Alert, In no apparent distress HEENT: Atraumatic, PERRLA, EOMI Neck: Supple, JVD not distended Respiratory: Clear to auscultation bilaterally, Normal air movement Cardiovascular: Regular rate/rhythm, Normal S1 S2 Gastrointestinal: Normal bowel sounds, No tenderness Musculoskeletal: No tenderness, left upper, left lower extremity hemiparesis Integumentary: No rashes Neurological: Normal speech, Normal tone, Normal affect Lymphatics: No axilla or inguinal lymphadenopathy - Studies Medications List Reviewed: Yes Assessment And Plan - Current Problems (Diagnosis) Arterial ischemic stroke, MCA (middle cerebral artery), left, acute PT, speech eval, fall 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 Events of the last 24 hours have been noted. Spoke with with ERICK regarding patient's clinical picture after evaluating and examining the patient independently. I performed a substantial part of the MDM during this patient's care today. I personally made or approved the documented management plan and acknowledge its risk of complications. I agree with the findings and documentation provided in the ERICK's notes. Patient with evidence of acute CVA. Continue with antiplatelet therapy and statin therapy. Cardiology consulted and patient with stent placement. Continue with antiplatelet therapy and anticoagulation. Physical therapy evaluation and speech therapy evaluation pending. <Bridgette Schrader - Last Filed: 05/14/24 17:50>
[2024-05-08] MEDS: MIDAZOLAM HCL 2 MG/2 ML INJ ONE (11:30)
[2024-05-08] MEDS: FENTANYL CITR 100 MCG/2 ML ONE (11:30)
[2024-05-08] MEDS ORDERED: LIDOCAINE 1% 20 ML MDV ONE (11:33)
[2024-05-08] MEDS ORDERED: ATROPINE SULF 1 MG/10 ML SYR IV ONE (11:33)
[2024-05-08] MEDS ORDERED: HEPA 1000U/500MLS 2,000 UNIT/1,000 ML BAG IV ONE (11:33)
[2024-05-08] MEDS ORDERED: HEPARIN 5000 UNIT/ML 1 ML VIAL ONE (11:33)
[2024-05-08] MEDS ORDERED: CLOPIDOGREL 75 MG TABLET ONE (11:33)
[2024-05-08] MEDS ORDERED: HEPARIN 10,000 UNIT/10 ML VIAL IV ONE (11:33)
[2024-05-08] MEDS ORDERED: ASPIRIN 325 MG TAB ONE (11:34)
[2024-05-08] MEDS ORDERED: TICAGRELOR 90 MG TABLET PO ONE (11:34)
[2024-05-08] MEDS ORDERED: ASPIRIN 81 MG CHEWABLE TABLET ONE (13:05)
--- NOTE | 2024-05-08 14:41 | P.PN ---
Subjective Date of Service: 05/08/24 Chief Complaint: CVA NSTEMI Subjective: No new changes, No C/O voiced, Tolerating diet, Ambulating, Improving Review of Systems 10-point ROS is otherwise unremarkable Physical Examination - Vital Signs Temperature: 97.0 F Blood Pressure: 132/95 Pulse: 74 Respirations: 16 Pulse Ox (%): 98 - Physical Exam General: Alert, In no apparent distress HEENT: Atraumatic, PERRLA, EOMI Neck: Supple, JVD not distended Respiratory: Clear to auscultation bilaterally, Normal air movement Cardiovascular: Regular rate/rhythm, Normal S1 S2 Gastrointestinal: Normal bowel sounds, No tenderness Musculoskeletal: No tenderness Integumentary: No rashes Neurological: Normal speech, Normal tone, Normal affect Lymphatics: No axilla or inguinal lymphadenopathy - Studies Medications List Reviewed: Yes Assessment And Plan - Current Problems (Diagnosis) (1) NSTEMI (non-ST elevated myocardial infarction) Current Visit: Yes Status: Acute Plan: Troponin elevated and down trending, patient had a recent stroke but cleared for anticoagulation Coronary angiogram done and s/p PCI LAD and LCX ASA 81 mg daily Plavix 75 mg daily lipitor 40 mg daily (2) HTN (hypertension) Current Visit: Yes Status: Acute Plan: continue toprol xl and losartan/hctz (3) HLD (hyperlipidemia) Current Visit: Yes Status: Acute Plan: continue lipitor 40 mg daily
[2024-05-09 05:54] LABS: Absolute Eosinophils 0.4 K/uL (0-0.5); Absolute Lymphocytes (CBC) 0.7 K/uL (0.7-4.9); Absolute Monocytes 0.5 K/uL (0.1-1.3); Absolute Neutrophil 6.5 K/uL (1.8-8.0); Basophils % 0.4 % (0-1.3); Eosinophils % 4.5 % (0-4.4); Hematocrit 39.4 % (39.6-49.0); Hemoglobin 13.2 g/dL (13.6-17.9); Lymphocytes % 8.9 % (15.3-44.8); MCH 30.1 pg (27.0-35.0); MCHC 33.6 g/dL (32.0-36.0); MCV 89.4 fL (80-100); MPV 7.9 fL (7.6-11.3); Monocytes % 5.9 % (3.3-12.3); Neutrophils % 80.3 % (41.7-73.7); Platelets 255 thou/uL (152-406); RBC Red Blood Cell Count 4.41 M/uL (4.33-5.43); Red Cell Distribution Width 15.2 % (12.1-15.2)
[2024-05-09 06:16] LABS: Albumin 2.9 g/dL (3.4-5.0); Anion Gap 8.6 mEq/L (5.0-15.0); Phosphorus 2.7 mg/dL (2.5-4.9); Potassium 3.6 mEq/L (3.5-5.1)
[2024-05-09 06:17] LABS: Troponin High Sensitivity 1149.9 pg/mL (<58.9)
--- NOTE | 2024-05-09 11:25 | P.PN ---
Subjective Date of Service: 05/09/24 Chief Complaint: CVA NSTEMI Subjective: No new changes, No C/O voiced, Tolerating diet, Ambulating, Improving Review of Systems 10-point ROS is otherwise unremarkable Physical Examination - Vital Signs Temperature: 97.9 F Blood Pressure: 123/76 Pulse: 74 Respirations: 16 Pulse Ox (%): 96 - Physical Exam General: Alert, In no apparent distress HEENT: Atraumatic, PERRLA, EOMI Neck: Supple, JVD not distended Respiratory: Clear to auscultation bilaterally, Normal air movement Cardiovascular: Regular rate/rhythm, Normal S1 S2 Gastrointestinal: Normal bowel sounds, No tenderness Musculoskeletal: No tenderness Integumentary: No rashes Neurological: Normal speech, Normal tone, Normal affect Lymphatics: No axilla or inguinal lymphadenopathy - Studies Medications List Reviewed: Yes Assessment And Plan - Current Problems (Diagnosis) (1) NSTEMI (non-ST elevated myocardial infarction) Current Visit: Yes Status: Acute Plan: Troponin elevated and down trending, patient had a recent stroke but cleared for anticoagulation Coronary angiogram done and s/p PCI LAD and LCX ASA 81 mg daily Plavix 75 mg daily lipitor 40 mg daily (2) HTN (hypertension) Current Visit: Yes Status: Acute Plan: continue toprol xl and losartan/hctz (3) HLD (hyperlipidemia) Current Visit: Yes Status: Acute Plan: continue lipitor 40 mg daily Cardiology will sign off.
--- NOTE | 2024-05-09 15:55 | P.DS ---
Admission Date: 05/04/24 Discharge Date: 05/14/24 Disposition: [facility] Discharge Condition: FAIR Reason for Admission: CVA NSTEMI Brief History of Present Illness: Patient is a 53-year-old -[place] male currently in custody. He presented to the ER with left-sided weakness ongoing for more than 6 hours. Patient was only brought in today for evaluation. As per ER signout, this began 6 days ago. Patient has been having difficulty walking because of weakness. Workup in the ER revealed a subacute stroke. His vital signs were stable including a blood pressure 146/93. During my evaluation, patient was very lethargic. According to elicit any response. - Physical Exam General: Other (Somnolent and lethargic) HEENT: Atraumatic, Normocephalic Respiratory: Clear to auscultation bilaterally, Normal air movement Cardiovascular: No edema, Normal pulses, Regular rate/rhythm, Systolic murmur Musculoskeletal: No clubbing, No swelling, No contractures, No erythema, No tenderness Neurological: Abnormal speech, Abnormal strength left hemiparesis, Hospital Course: Patient is a 53-year-old -[place] male currently in custody. He presented to the ER with left-sided weakness ongoing for more than 6 hours. Patient was only brought in today for evaluation. As per ER signout, this began 6 days ago. Patient has been having difficulty walking because of weakness. Workup in the ER revealed a subacute stroke. Was noted to have left hemiparesis, NSTEMI, no reported chest pain, was evaluated by cardiology, is status post left heart cath, PCI x 2 placed, started on aspirin, Plavix. Plan to discharge for acute care facility for further CVA evaluation and treatment plan. Brain CT Abrupt narrowing of the proximal right A1 segment compatible with occlusion. Brain MRI Moderate-sized acute infarct centered in the medial right frontal lobe in a distribution of the right anteriorcerebral artery. Suspect late acute/early subacute infarct. Question absent right A2 HAYDE flow void. CTA or MRA could co nfirm. NSTEMI 05/08 Status post heart cath, Coronary angiogram done and s/p PCI LAD and LCX start, Plavix, aspirin Speech therapy eval There were no overt s/s of aspiration or dysphagia. The patient's speech was 100% intelligible and there was no aphasia noted. The patient can continue his current diet. ST intervention is not warranted at this time. Medications at discharge Aspirin 81 mg Plavix 75 mg daily Lipitor 40 mg Toprol XL and losartan losartan/hctz Assessment Arterial ischemic stroke, MCA (middle cerebral artery), left hemiparesis, acute fall precaution Was evaluated by PT, speech eval, fall precaution-plan to discharge to [facility] for rehab, PT OT resident of [facility] DDD as needed analgesia left-sided radiculopathy fall precaution Multilevel degenerative disc disease which is most advanced at L4-5 where there is moderate central spinal stenosis, moderate bilateral neural foraminal narrowing, and subarticular zone narrowing. NSTEMI (non-ST elevated myocardial infarction) 05/08 Status post heart cath, Coronary angiogram done and s/p PCI LAD and LCX Troponin elevated and down trending, patient had a recent stroke but cleared for anticoagulation. ASA 81 mg daily, lipitor 40 mg daily HTN (hypertension) uncontrolled-continue toprol xl and losartan/hctz HLD (hyperlipidemia)-continue lipitor 40 mg daily echo NORMAL LEFT VENTRICULAR SYSTOLIC FUNCTION. LEFT VENTRICULAR EJECTION FRACTION 60-65%. NORMAL WALL MOTION. 2. NORMAL DIASTOLIC FUNCTION. Continue home medicines as previously prescribed GOAL: Clear understanding of disease process INSTRUCTIONS: Physician Discharge Instructions: -Follow-up with PCP in 1 to 2 weeks -Please call Dr. Schrader at [phone] if any questions regarding hospital stay -Please call nursing station at [phone] if any nursing or medication questions -Return to the emergency room if symptoms worsen Diet: ADA, low sodium Activity: Fall precautions Vital Signs/Physical Exam: Temp Pulse Resp BP Pulse Ox 97.8 F 84 12 98/57 L 96 05/09/24 12:00 05/09/24 12:00 05/09/24 12:00 05/09/24 12:00 05/09/24 12:00 Laboratory Data at Discharge: WBC 8.10 thou/uL (4.3-10.9) 05/09/24 05:36 Hgb 13.2 g/dL (13.6-17.9) L 05/09/24 05:36 Hct 39.4 % (39.6-49.0) L 05/09/24 05:36 Plt Count 255 thou/uL (152-406) 05/09/24 05:36 Sodium 136 mEq/L (136-145) 05/09/24 05:36 Potassium 3.6 mEq/L (3.5-5.1) 05/09/24 05:36 BUN 22 mg/dL (7-18) H 05/09/24 05:36 Creatinine 0.92 mg/dL (0.70-1.30) 05/09/24 05:36 Glucose 117 mg/dL (74-106) H 05/09/24 05:36 Phosphorus 2.7 mg/dL (2.5-4.9) 05/09/24 05:36 Magnesium 2.1 mg/dL (1.6-2.4) 05/04/24 18:15 Total Bilirubin 0.6 mg/dL (0.2-1.0) 05/08/24 07:15 AST 20 U/L (15-37) 05/08/24 07:15 ALT 21 U/L (16-61) 05/08/24 07:15 Alkaline Phosphatase 58 U/L (45-117) 05/08/24 07:15 Triglycerides 76 mg/dL (<150) 05/05/24 05:23 Cholesterol 140 mg/dL (<200) 05/05/24 05:23 HDL Cholesterol 31 mg/dL (40-60) L 05/05/24 05:23 Cholesterol/HDL Ratio 4.52 05/05/24 05:23 Home Medications: Amlodipine [Norvasc*] 10 mg PO DAILY 05/05/24 Metoprolol/Hydrochlorothiazide [Metoprolol-Hctz 50-25 mg Tab] 50 mg PO DAILY 05/05/24 hydroCHLOROthiazide [Hydrochlorothiazide] 20 mg PO DAILY 05/05/24 Physician Discharge Instructions: Patient is a 53-year-old -[place] male currently in custody. He presented to the ER with left-sided weakness ongoing for more than 6 hours. Patient was only brought in today for evaluation. As per ER signout, this began 6 days ago. Patient has been having difficulty walking because of weakness. Workup in the ER revealed a subacute stroke. Was noted to have left hemip aresis, NSTEMI, no reported chest pain, was evaluated by cardiology, is status post left heart cath, PCI x 2 placed, started on aspirin, Plavix. Plan to discharge for acute care facility for further CVA evaluation and treatment plan. Brain CT Abrupt narrowing of the proximal right A1 segment compatible with occlusion. Brain MRI Moderate-sized acute infarct centered in the medial right frontal lobe in a distribution of the right anteriorcerebral artery. Suspect late acute/early subacute infarct. Question absent right A2 HAYDE flow void. CTA or MRA could confirm. NSTEMI 05/08 Status post heart cath, Coronary angiogram done and s/p PCI LAD and LCX start, Plavix, aspirin Speech therapy eval There were no overt s/s of aspiration or dysphagia. The patient's speech was 100% intelligible and there was no aphasia noted. The patient can continue his current diet. ST intervention is not warranted at this time. We are attempting transfer to [facility] as patient is a prisoner and needing to be placed in rehab. At this time, we will wait on bed placement and once we get bed placement patient should be stable for transfer. Medications at discharge Aspirin 81 mg Plavix 75 mg daily Lipitor 40 mg Toprol XL and losartan losartan/hctz Assessment Arterial ischemic stroke, MCA (middle cerebral artery), left, acute fall precaution Was evaluated by PT, speech eval, fall precaution resident of [facility] NSTEMI (non-ST elevated myocardial infarction) 05/08 Status post heart cath, Coronary angiogram done and s/p PCI LAD and LCX Troponin elevated and down trending, patient had a recent stroke but cleared for anticoagulation. ASA 81 mg daily, lipitor 40 mg daily HTN (hypertension) uncontrolled-continue toprol xl and losartan/hctz HLD (hyperlipidemia)-continue lipitor 40 mg daily Continue home medicines as previously prescribed GOAL: Clear understanding of disease process INSTRUCTIONS: Physician Discharge Instructions: -Follow-up with PCP in 1 to 2 weeks -Please call Dr. Schrader at [phone] if any questions regarding hospital stay -Please call nursing station at [phone] if any nursing or medication questions -Return to the emergency room if symptoms worsen Diet: ADA, low sodium Activity: Fall precautions Diet: AHA Activity: Fall precautions Followup: NONE,NONE [Primary Care Provider] - Michael Harris MD [ASSOCIATE-ACTIVE - CAN ADMIT] - Gaston Branch MD [ACTIVE - CAN ADMIT] - Time spent managing pt's care (in minutes): 55
[2024-05-09] MEDS: NA CHLORIDE 0.9% 1,000 ML IV SCH (18:08)
[2024-05-10 06:36] LABS: Absolute Eosinophils 0.4 K/uL (0-0.5); Absolute Lymphocytes (CBC) 1.1 K/uL (0.7-4.9); Absolute Monocytes 0.5 K/uL (0.1-1.3); Absolute Neutrophil 4.4 K/uL (1.8-8.0); Basophils % 0.2 % (0-1.3); Eosinophils % 5.6 % (0-4.4); Hematocrit 38.3 % (39.6-49.0); Hemoglobin 12.8 g/dL (13.6-17.9); Lymphocytes % 17.8 % (15.3-44.8); MCH 30.1 pg (27.0-35.0); MCHC 33.5 g/dL (32.0-36.0); MCV 89.8 fL (80-100); MPV 8.1 fL (7.6-11.3); Monocytes % 7.9 % (3.3-12.3); Neutrophils % 68.5 % (41.7-73.7); Nucleated Red Blood Cells % 0.1 % (0-0); Platelets 268 thou/uL (152-406); RBC Red Blood Cell Count 4.26 M/uL (4.33-5.43)
[2024-05-10 07:08] LABS: Albumin 2.7 g/dL (3.4-5.0); Albumin/Globulin Ratio 0.5 (1.1-1.8); Anion Gap 6.6 mEq/L (5.0-15.0); Bilirubin Total 0.3 mg/dL (0.2-1.0); Phosphorus 3.1 mg/dL (2.5-4.9); Potassium 3.6 mEq/L (3.5-5.1); Protein, Total 7.7 g/dL (6.4-8.2)
[2024-05-10 07:23] LABS: Troponin High Sensitivity 1091.7 pg/mL (<58.9)
[2024-05-10] MEDS: CODEINE 30MG/APAP 300MG TAB PO PRN (07:52)
--- NOTE | 2024-05-10 09:09 | P.PN ---
Date of Service: 05/09/24 Subjective ,recent CVA LUE/LLE weakness, fall precautions, working PT Review of Systems 10-point ROS is otherwise unremarkable Physical Examination - Vital Signs reviewed - Physical Exam General: Alert, In no apparent distress HEENT: Atraumatic, PERRLA, EOMI Neck: Supple, JVD not distended Respiratory: Clear to auscultation bilaterally, Normal air movement Cardiovascular: Regular rate/rhythm, Normal S1 S2 Gastrointestinal: Normal bowel sounds, No tenderness Musculoskeletal: No tenderness, left upper, left lower extremity hemiparesis Integumentary: No rashes Neurological: Normal speech, Normal tone, Normal affect Lymphatics: No axilla or inguinal lymphadenopathy - Studies Medications List Reviewed: Yes Assessment And Plan - Current Problems (Diagnosis) Arterial ischemic stroke, MCA (middle cerebral artery), left, acute Left hemiparesis PT, speech eval, fall precaution DME [facility] NSTEMI (non-ST elevated myocardial infarction) Current Visit: Yes Status: Acute Plan: Troponin elevated and down trending, patient had a recent stroke but cleared for anticoagulation. 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 Events of the last 24 hours have been noted. Spoke with with ERICK regarding patient's clinical picture after evaluating and examining the patient independently. I performed a substantial part of the MDM during this patient's care today. I personally made or approved the documented management plan and acknowledge its risk of complications. I agree with the fi ndings and documentation provided in the ERICK's notes. Patient with evidence of acute CVA. Continue with antiplatelet therapy and statin therapy. Cardiology consulted and patient with stent placement of the left circumflex and LAD. Continue with antiplatelet therapy and anticoagulation. Physical therapy evaluation and speech therapy evaluation initiated. Patient will continue with occupational therapy as well. Will get with [facility] and discussed with them regarding placement once he has to go back to present <Bridgette Schrader - Last Filed: 05/14/24 17:51>
--- NOTE | 2024-05-11 09:22 | P.PN ---
Date of Service: 05/10/24 Subjective recent CVA LUE/LLE weakness, fall precautions, working PT Review of Systems 10-point ROS is otherwise unremarkable Physical Examination - Vital Signs reviewed - Physical Exam General: Alert, In no apparent distress noted, afebrile HEENT: Atraumatic, PERRLA, EOMI Neck: Supple, JVD not distended Respiratory: Clear to auscultation bilaterally, Normal air movement Cardiovascular: Regular rate/rhythm, Normal S1 S2 Gastrointestinal: Normal bowel sounds, No tenderness Musculoskeletal: left upper, left lower extremity hemiparesis Integumentary: No rashes Neurological: Normal speech, Normal tone, Normal affect Lymphatics: No axilla or inguinal lymphadenopathy - Studies Medications List Reviewed: Yes Assessment And Plan - Current Problems (Diagnosis) Arterial ischemic stroke, MCA (middle cerebral artery), left, acute Left hemiparesis resident [facility] neuro consult acute cva PT, speech eval, 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 neck CT Mild bilateral carotid bulb stenosis as detailed above. CT head Abrupt narrowing of the proximal right A1 segment compatible with occlusion. sp eval There were no overt s/s of aspiration or dysphagia. The patient's speech was 100% intelligible and there was no aphasia noted. The patient can continue his current diet. ST intervention is not warranted at this time. pending [facility] rehab bed DDD left-sided radiculopathy Multilevel degenerative disc disease which is most advanced at L4-5 where there is moderate central spinal stenosis, moderate bilateral neural foraminal narrowing, and subarticular zone narrowing. There is also severe left neural foraminal narrowing at L5-S1. Either level could explain a left-sided radiculopathy. The patient is known to have a moderate sized right HAYDE infarct which is the likely etiology if left sided weakness is acute. NSTEMI (non-ST elevated myocardial infarction) Current Visit: Yes Status: Acute Plan: Troponin elevated and down trending, patient had a recent stroke but cleared for anticoagulation. ASA 81 mg daily lipitor 40 mg daily s/p labor mediator post 05/08 LAD; [id number] mid left circ disease, status post PCI with Synergy 2.75 x mm drug-eluting stent. 2. Significant mid LAD disease, status post PCI with Synergy 3.5 x 28 cm drug- eluting stent. Plan: Aspirin 81 mg daily for life and Plavix 75 mg daily for 12 months and continue aggressive medical . echo NORMAL LEFT VENTRICULAR SYSTOLIC FUNCTION. LEFT VENTRICULAR EJECTION FRACTION 60-65%. NORMAL WALL MOTION. 2. NORMAL DIASTOLIC FUNCTION. 3. NEGATIVE SALINE BUBBLE STUDY. HTN (hypertension) uncontrolled Current Visit: Yes Status: Acute Plan: continue toprol xl and losartan/hctz HLD (hyperlipidemia) Current Visit: Yes Status: Acute Plan: continue lipitor 40 mg daily Full code DVT Plavix, Lovenox Diet cardiac Disposition pending hospital course time with patient 30 min <Mary Rosen - Last Filed: 05/13/24 21:53> Patient was seen and examined. Events of the last 24 hours have been noted. Spoke with with ERICK regarding patient's clinical picture after evaluating and examining the patient independently. I performed a substantial part of the MDM during this patient's care today. I personally made or approved the documented management plan and acknowledge its risk of complications. I agree with the findings and documentation provided in the ERICK's notes. Patient with evidence of acute CVA. Continue with antiplatelet therapy and statin therapy. Cardiology consulted and patient with stent placement of the left circumflex and LAD. Continue with antiplatelet therapy and anticoag ulation. Physical therapy evaluation and speech therapy evaluation initiated. Patient will continue with occupational therapy as well. Will get with [facility] and discussed with them regarding placement once he has to go back to present;. Working with the bed placement center at [facility] to get this set up. <Bridgette Schrader - Last Filed: 05/14/24 17:52>
--- NOTE | 2024-05-11 17:08 | OP ---
Date of Procedure: 05/08/2024 Surgeon: Gaston Branch Procedures Performed: 1.Selective coronary angiogram. 2.PCI of the left circ with Synergy 2.75 x 20 mm drug-eluting stent. 3.PCI of LAD with Synergy 3.5 x 28 mm drug-eluting stent. Indication For Procedure: Dry-CB-jrxcsiodj NE. Complications: None. Estimated Blood Loss: Less than 50 cc. Access: Right radial, closed by TR band. Sedation Time: 40 minutes with 1 of Versed and 25 of fentanyl. Description Of Procedure: After risks, and benefits, and alternatives were explained to the patient, the patient agreed to proceed with procedure and signed informed consent. The patient was brought [facility] to the crown and bridge dental lab technician, prepped and draped in a sterile fashion. Time-out was performed. Sedation was administered. Next, right radial access was obtained. A [employer] 4.0 catheter was advanced over a J-wi re to the aortic root. Selective angiogram was done. Next, after that, catheter was exchanged over a J-wire with an EBU 3.5 mm guide to the left main. Heparin was administered. ACT was therapeutic. Runthrough wire was passed across the left circ lesion, pre-dilated the lesion with an NC 2.5 mm bal loon. Next, Synergy 2.75 x 20 mm drug-eluting stent was placed across the lesion that was postdilate d with an NC 3.0 mm balloon. After that, wire was removed and redirected into the LAD and we pre-dil ated the LAD lesions with an NC 3.0 mm balloon. Next, Synergy 3.5 x 28 mm drug-eluting stent was pas sed across the lesion that was postdilated with an NC 4.0 mm balloon. Angiogram shows KINJAL-3 flow. At the end of procedure, catheter was removed over a J-wire. Sheath was removed. TR band was applie d. Hemostasis was achieved. The patient was moved to Recovery in stable condition. Findings: 1.Left main normal. 2.LAD; mid 70% disease, status post PCI with Synergy 3.5 x 28 mm drug-eluting stent. Mid to distal mild luminal irregularities. 3.Diagonal; large, mild luminal irregularities. 4.Left circ; mid 80% disease, status post PCI with Synergy 2.75 x 20 mm drug-eluting stent. 5.RCA; mild luminal irregularities with distal 30% disease. Assessment And Plan: 1.Significant mid left circ disease, status post PCI with Synergy 2.75 x mm drug-eluting stent. 2.Significant mid LAD disease, status post PCI with Synergy 3.5 x 28 cm drug-eluting stent. Plan: Aspirin 81 mg daily for life and Plavix 75 mg daily for 12 months and continue aggressive medi romana treatment for CAD. ABDIFATAH/RASHAWN Voice ID: [id number] Report ID: [id number]
--- NOTE | 2024-05-12 08:52 | P.PN ---
Date of Service: 05/12/24 [facility] NO. [id number]
--- NOTE | 2024-05-12 10:19 | P.PN ---
Date of Service: 05/13/24 Subjective recent CVA LUE/LLE weakness, fall precautions, working PT pending [facility] bed rehab prisoner, guards at bedside Review of Systems 10-point ROS is otherwise unremarkable Physical Examination - Vital Signs reviewed - Physical Exam General: Alert,oriented x3, afebrile HEENT: Atraumatic, PERRLA, EOMI Neck: Supple, JVD not distended Respiratory: Clear to auscultation bilaterally,unlabored Cardiovascular: Regular rate/rhythm, Normal S1 S2 Gastrointestinal: Normal bowel sounds, No tenderness Musculoskeletal: left upper, left lower extremity hemiparesis Integumentary: No rashes Neurological: Normal speech, Normal tone, Normal affect, no focal deficits, Lymphatics: No axilla or inguinal lymphadenopathy - Studies Medications List Reviewed: Yes Assessment And Plan - Current Problems (Diagnosis) Arterial ischemic stroke, MCA (middle cerebral artery), left, acute Left hemiparesis resident [facility] neuro consult acute cva PT, speech eval, 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 neck CT Mild bilateral carotid bulb stenosis as detailed above. CT head Abrupt narrowing of the proximal right A1 segment compatible with occlusion. sp eval There were no overt s/s of aspiration or dysphagia. The patient's speech was 100% intelligible and there was no aphasia noted. The patient can continue his current diet. ST intervention is not warranted at this time. pending [facility] rehab bed DDD left-sided radiculopathy Multilevel degenerative disc disease which is most advanced at L4-5 where there is moderate central spinal stenosis, moderate bilateral neural foraminal narrowing, and subarticular zone narrowing. There is also severe left neural foraminal narrowing at L5-S1. Either level could explain a left-sided radiculopathy. The patient is known to have a moderate sized right HAYDE infarct which is the likely etiology if left sided weakness is acute. prn analgesic NSTEMI (non-ST elevated myocardial infarction) Troponin elevated and down trending, patient had a recent stroke but cleared for anticoagulation. ASA 81 mg daily lipitor 40 mg daily s/p bottle label inspector post 05/08 LAD; Significant mid left circ disease, status post PCI with Synergy 2.75 x mm drug-eluting stent. 2. Significant mid LAD disease, status post PCI with Synergy 3.5 x 28 cm drug- eluting stent. Plan: Aspirin 81 mg daily for life and Plavix 75 mg daily for 12 months and continue aggressive medical . echo NORMAL LEFT VENTRICULAR SYSTOLIC FUNCTION. LEFT VENTRICULAR EJECTION FRACTION 60-65%. NORMAL WALL MOTION. 2. NORMAL DIASTOLIC FUNCTION. 3. NEGATIVE SALINE BUBBLE STUDY. HTN (hypertension) uncontrolled Current Visit: Yes Status: Acute Plan: continue toprol xl and losartan/hctz HLD (hyperlipidemia) Current Visit: Yes Status: Acute Plan: continue lipitor 40 mg daily Full code DVT Plavix, Lovenox Diet cardiac Disposition pending hospital course time with patient 25 min <Mary Rosen - Last Filed: 05/13/24 22:17> Patient was seen and examined. Events of the last 24 hours have been noted. Spoke with with ERICK regarding patient's clinical picture after evaluating and examining the patient independently. I performed a substantial part of the MDM during this patient's care today. I personally made or approved the documented management plan and acknowledge its risk of complications. I agree with the findings and documentation provided in the ERICK's notes. Patient with evidence of acute CVA. Continue with antiplatelet therapy and statin therapy. Cardiology consulted and patient with stent placement of the left circumflex and LAD. Continue with antiplatelet therapy and anticoagulation. Physical therapy evaluation and speech therapy evaluation initiated. Patient will continue with occupational therapy as well.. Awaiting for bed placement at [facility] <Bridgette Schrader - Last Filed: 05/14/24 17:54>
[2024-05-12] MEDS: CODEINE 30MG/APAP 300MG TAB PO PRN (22:11)
--- NOTE | 2024-05-13 09:05 | P.PN ---
Date of Service: 05/11/24 Subjective recent CVA LUE/LLE weakness, fall precautions, working PT pending [facility] bed rehab Review of Systems 10-point ROS is otherwise unremarkable Physical Examination - Vital Signs reviewed - Physical Exam General: Alert,oriented x3 HEENT: Atraumatic, PERRLA, EOMI Neck: Supple, JVD not distended Respiratory: Clear to auscultation bilaterally, Normal air movement Cardiovascular: Regular rate/rhythm, Normal S1 S2 Gastrointestinal: Normal bowel sounds, No tenderness Musculoskeletal: left upper, left lower extremity hemiparesis Integumentary: No rashes Neurological: Normal speech, Normal tone, Normal affect Lymphatics: No axilla or inguinal lymphadenopathy - Studies Medications List Reviewed: Yes Assessment And Plan - Current Problems (Diagnosis) Arterial ischemic stroke, MCA (middle cerebral artery), left, acute Left hemiparesis resident [facility] neuro consult acute cva PT, speech eval, fall precaution 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 neck CT Mild bilateral carotid bulb stenosis as detailed above. CT head Abrupt narrowing of the proximal right A1 segment compatible with occlusion. sp eval There were no overt s/s of aspiration or dysphagia. The patient's speech was 100% intelligible and there was no aphasia noted. The patient can continue his current diet. ST intervention is not warranted at this time. pending [facility] rehab bed DDD left-sided radiculopathy Multilevel degenerative disc disease which is most advanced at L4-5 where there is moderate central spinal stenosis, moderate bilateral neural foraminal narrowing, and subarticular zone narrowing. There is also severe left neural foraminal narrowing at L5-S1. Either level could explain a left-sided radiculopathy. The patient is known to have a moderate sized right HAYDE infarct which is the likely etiology if left sided weakness is acute. NSTEMI (non-ST elevated myocardial infarction) Current Visit: Yes Status: Acute Plan: Troponin elevated and down trending, patient had a recent stroke but cleared for anticoagulation. 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 2. Significant mid LAD disease, status post PCI with Synergy 3.5 x 28 cm drug- eluting stent. Plan: Aspirin 81 mg daily for life and Plavix 75 mg daily for 12 months and continue aggressive medical . echo NORMAL LEFT VENTRICULAR SYSTOLIC FUNCTION. LEFT VENTRICULAR EJECTION FRACTION 60-65%. NORMAL WALL MOTION. 2. NORMAL DIASTOLIC FUNCTION. 3. NEGATIVE SALINE BUBBLE STUDY. HTN (hypertension) uncontrolled Current Visit: Yes Status: Acute Plan: continue toprol xl and losartan/hctz HLD (hyperlipidemia) Current Visit: Yes Status: Acute Plan: continue lipitor 40 mg daily Full code DVT Plavix, Lovenox Diet cardiac Disposition pending hospital course time with patient 30 min <Mary Rosen - Last Filed: 05/13/24 22:12> Patient was seen and examined. Events of the last 24 hours have been noted. Spoke with with ERICK regarding patient's clinical picture after evaluating and examining the patient independently. I performed a substantial part of the MDM during this patient's care today. I personally made or approved the documented management plan and acknowledge its risk of complications. I agree with the findings and documentation provided in the ERICK's notes. At this time, were notified by bed placement that they are going have to work on securing a bed in their infirmary where they do the rehab. This may take up to 72 hours. Patient is on the waiting list while we wait for a bed assignment <Bridgette Schrader - Last Filed: 05/14/24 17:52>
--- NOTE | 2024-05-13 21:21 | PN ---
Date of Progress Note: 05/12/2024 Subjective: Seen by bedside. He is status post PCI of the LAD as well as the circ, did very well. No complications. Access site appears to be in stable without complication. No chest pain. Review of Systems: No chest pain, shortness of breath, orthopnea, cough. No nausea, vomiting, diarrhea. All other syst ems reviewed are negative. Physical Examination: Vital Signs: Reviewed. Head and Neck: Pupils are equal, reactive to light. Intact eye movements. No JVD, no cervical lymp hadenopathy. Neck: Supple. Thyroid is not enlarged. Lungs: Clear to auscultation bilaterally. No rhonchi, wheezing, or crackles. No accessory muscle u se. Heart: Regular rate and rhythm. No extra sounds. Abdomen: Soft, nontender. Bowel sounds positive. No organomegaly. No masses or hernia. No rigidi ty or rebound. Extremities: No edema, clubbing, cyanosis. Intact pulses. Skin: No rash. Neuro: Alert, awake, and oriented. No acute focal deficits appreciated. Lymph Nodes: No cervical lymphadenopathy. Investigation: Labs reviewed. Assessment/recommendations: 1.Vow-EV-emawxqigl myocardial infarction, status post percutaneous coronary intervention of left ant erior descending and circumference, doing great. Continue dual antiplatelet therapy and high potency high-dose statin. 2.Dyslipidemia. Continue atorvastatin 40 mg at bedtime. 3.Hypertension. Blood pressure is controlled. Continue current management. Cardiology will sign off. The patient will follow up at [facility] facility post discharge. /RASHAWN Voice ID: [id number] Report ID: [id number]
--- NOTE | 2024-05-13 22:25 | P.PN ---
Date of Service: 05/12/24 Subjective recent CVA LUE/LLE weakness, fall precautions, working PT pending [facility] bed rehab prisoner, guards at bedside tolerating diet, no dysphagia Review of Systems 10-point ROS is otherwise unremarkable Physical Examination - Vital Signs reviewed - Physical Exam General: Alert,oriented x3, afebrile HEENT: Atraumatic, PERRLA, EOMI Neck: Supple, JVD not distended Respiratory: Clear to auscultation bilaterally,unlabored Cardiovascular: Regular rate/rhythm, Normal S1 S2 Gastrointestinal: Normal bowel sounds, No tenderness Musculoskeletal: left upper, left lower extremity hemiparesis Integumentary: No rashes Neurological: Normal speech, Normal tone, Normal affect, no focal deficits, Lymphatics: No axilla or inguinal lymphadenopathy - Studies Medications List Reviewed: Yes Assessment And Plan - Current Problems (Diagnosis) Arterial ischemic stroke, MCA (middle cerebral artery), left, acute Left hemiparesis resident [facility] neuro consult acute cva PT, speech eval, 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 neck CT Mild bilateral carotid bulb stenosis as detailed above. CT head Abrupt narrowing of the proximal right A1 segment compatible with occlusion. sp eval There were no overt s/s of aspiration or dysphagia. The patient's speech was 100% intelligible and there was no aphasia noted. The patient can continue his current diet. ST intervention is not warranted at this time. pending [facility]val rehab bed DDD left-sided radiculopathy Multilevel degenerative disc disease which is most advanced at L4-5 where there is moderate central spinal stenosis, moderate bilateral neural foraminal narrowing, and subarticular zone narrowing. There is also severe left neural foraminal narrowing at L5-S1. Either level could explain a left-sided radiculopathy. The patient is known to have a moder ate sized right HAYDE infarct which is the likely etiology if left sided weakness is acute. prn analgesic NSTEMI (non-ST elevated myocardial infarction) Troponin elevated and down trending, patient had a recent stroke but cleared for anticoagulation. 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 2. Significant mid LAD disease, status post PCI with Synergy 3.5 x 28 cm drug- eluting stent. Plan: Aspirin 81 mg daily for life and Plavix 75 mg daily for 12 months and continue aggressive medical . echo NORMAL LEFT VENTRICULAR SYSTOLIC FUNCTION. LEFT VENTRICULAR EJECTION FRACTION 60-65%. NORMAL WALL MOTION. 2. NORMAL DIASTOLIC FUNCTION. 3. NEGATIVE SALINE BUBBLE STUDY. HTN (hypertension) uncontrolled Current Visit: Yes Status: Acute Plan: continue toprol xl and losartan/hctz HLD (hyperlipidemia) Current Visit: Yes Status: Acute Plan: continue lipitor 40 mg daily Full code DVT Plavix, Lovenox Diet cardiac Disposition pending hospital course time with patient 20 min <Mary Rosen - Last Filed: 05/13/24 22:25> Patient was seen and examined. Events of the last 24 hours have been noted. Spoke with with ERICK regarding patient's clinical picture after evaluating and examining the patient independently. I performed a substantial part of the MDM during this patient's care today. I personally made or approved the documented management plan and acknowledge its risk of complications. I agree with the findings and documentation provided in the ERICK's notes. Patient with evidence of acute CVA. Continue with antiplatelet therapy and statin therapy. Cardiology consulted and patient with stent placement of the left circumflex and LAD. Continue with antiplatelet therapy and anticoagulation. Physical therapy evaluation and speech therapy evaluation initiated. Patient will continue with occupational therapy as well. At this time we are waiting for placement once a bed comes available <Bridgette Schrader - Last Filed: 05/14/24 17:53>
--- NOTE | 2024-05-14 17:57 | P.PN ---
Date of Service: 05/14/24 Subjective Patient has not really improved with his lower extremity weakness. Upper extremity weakness is better. Speech is better. Continuing with physical therapy at this time. Awaiting for placement at the [facility] at [facility]. Physical Examination - Vital Signs reviewed - Physical Exam General: Alert,oriented x3, afebrile Respiratory: Clear to auscultation bilaterally,unlabored Cardiovascular: Regular rate/rhythm, Normal S1 S2 Gastrointestinal: Normal bowel sounds, No tenderness Musculoskeletal: left upper, left lower extremity hemiparesis Neurological: Normal speech, Normal tone, Normal affect, no focal deficits, Assessment And Plan - Current Problems (Diagnosis) Arterial ischemic stroke, MCA (middle cerebral artery), left, acute Left hemiparesis resident [facility] Continue with antiplatelet therapy. Continue with statin therapy. Physical therapy evaluation along with speech therapy evaluation. Awaiting for transfer to [facility] placement in the [facility]. DDD left-sided radiculopathy Continue with physical therapy evaluation. Continue antiplatelet therapy and statin therapy. NSTEMI (non-ST elevated myocardial infarction) Patient started close cardiac catheterization with LAD stent and left circumflex stent placement. HTN (hypertension) uncontrolled Current Visit: Yes Status: Acute Plan: Strict blood pressure control HLD (hyperlipidemia) Current Visit: Yes Status: Acute Plan: Continue with statin therapy Full code DVT Plavix, Lovenox Diet cardiac Disposition pending hospital course time with patient 25 min
--- NOTE | 2024-05-15 10:01 | P.PN ---
Subjective Date of Service: 05/15/24 Chief Complaint: CVA NSTEMI Subjective: No new changes Pt is awaiting return to [facility] Review of Systems 10-point ROS is otherwise unremarkable General: As per HPI Eyes: Unremarkable ENT: Unremarkable Respiratory: Unremarkable Cardiovascular: Unremarkable Gastrointestinal: Unremarkable Genitourinary: Unremarkable Musculoskeletal: Other (toes sore) Integumentary: Unremarkable Neurological: Weakness Lymphatics: As per HPI Physical Examination - Vital Signs Temperature: 98.5 F Blood Pressure: 137/77 Pulse: 63 Respirations: 16 Pulse Ox (%): 97 - Physical Exam General: Alert, In no apparent distress, Oriented x3, Other (unable to move left leg, + reflexes, 4+ to plantar area) HEENT: Atraumatic, Normocephalic Neck: Supple Respiratory: Normal air movement Cardiovascular: Regular rate/rhythm, Normal S1 S2 Capillary refill: <2 Seconds Gastrointestinal: Soft and benign Musculoskeletal: No clubbing, No swelling, Other (unable to move left lower ext) Integumentary: No rashes, No significant lesion Neurological: Normal speech, Normal tone, Abnormal affect (flat) Lymphatics: No axilla or inguinal lymphadenopathy External genitalia: Deferred Rectal: Deferred - Studies Medications List Reviewed: Yes Assessment And Plan - Plan Assessment and Plan - Problems (Diagnosis) (1) CVA (cerebral vascular accident) Current Visit: Yes Status: Acute - Plan Assessment This is a 53-year-old male presenting with left-sided weakness that started 6 days ago. Brain MRI revealed a moderately sized acute infarct involving the right frontal lobe in the anterior cerebral artery distribution. Patient continued to have left lower extremity weakness, which the radiologist attributes to his acute stroke. He also had a lumbar MRI which revealed severe lumbar stenosis. Acute CVA Lumbar stenosis Plan: 05/15/24 Will admit to inpatient with telemetry. Significantly elevated Troponins. Pt underwent LHC and had PCI x 2 ASA and Plavix daily Statin - Atorvastatin 40mg po q hs Permissive hypertension - 98.5, 63, 16, 137/77, 97% RA Neurology consult - done Patient may need evaluation by neurosurgery for his lumbar stenosis Full code PT/OT/SALES REPRESENTATIVE BUSINESS COURSES ordered Patient could not be transferred to [facility] since they're at capacity, 05/15/24 awaiting transport to [facility] - Advance Directives Does patient have a Living Will: No Does patient have a Durable POA for Healthcare: No - Code Status/Comfort Care Code Status Assessed: Yes (Full) Time Spent Managing PTS Care (In Minutes): 25
[2024-05-15 10:27] LABS: Absolute Eosinophils 0.4 K/uL (0-0.5); Absolute Lymphocytes (CBC) 1.3 K/uL (0.7-4.9); Absolute Monocytes 0.4 K/uL (0.1-1.3); Absolute Neutrophil 5.8 K/uL (1.8-8.0); Basophils % 0.4 % (0-1.3); Eosinophils % 4.6 % (0-4.4); Hemoglobin 13.1 g/dL (13.6-17.9); Lymphocytes % 16.4 % (15.3-44.8); MCH 29.6 pg (27.0-35.0); MCHC 32.7 g/dL (32.0-36.0); MCV 90.7 fL (80-100); MPV 8.2 fL (7.6-11.3); Monocytes % 5.5 % (3.3-12.3); Neutrophils % 73.1 % (41.7-73.7); Platelets 385 thou/uL (152-406); RBC Red Blood Cell Count 4.41 M/uL (4.33-5.43); Red Cell Distribution Width 15.1 % (12.1-15.2)
[2024-05-15 10:39] LABS: Albumin 2.9 g/dL (3.4-5.0); Anion Gap 8.9 mEq/L (5.0-15.0); Phosphorus 3.8 mg/dL (2.5-4.9); Potassium 3.9 mEq/L (3.5-5.1)
--- NOTE | 2024-05-16 18:23 | P.PN ---
Date of Service: 05/16/24 Subjective Date of Service: 05/16/24 Chief Complaint: CVA NSTEMI Subjective: No new changes Pt is awaiting return to [facility] Review of Systems 10-point ROS is otherwise unremarkable General: As per HPI Eyes: Unremarkable ENT: Unremarkable Respiratory: Unremarkable Cardiovascular: Unremarkable Gastrointestinal: Unremarkable Genitourinary: Unremarkable Musculoskeletal: Other (toes sore) Integumentary: Unremarkable Neurological: Weakness Lymphatics: As per HPI Physical Examination - Vital Signs Temperature: 98.5 F Blood Pressure: 137/77 Pulse: 63 Respirations: 16 Pulse Ox (%): 97 - Physical Exam General: Alert, In no apparent distress, Oriented x3, Other (unable to move left leg, + reflexes, 4+ to plantar area) HEENT: Atraumatic, Normocephalic Neck: Supple Respiratory: Normal air movement Cardiovascular: Regular rate/rhythm, Normal S1 S2 Capillary refill: <2 Seconds Gastrointestinal: Soft and benign Musculoskeletal: No clubbing, No swelling, Other (unable to move left lower ext) Integumentary: No rashes, No significant lesion Neurological: Normal speech, Normal tone, Abnormal affect (flat) Lymphatics: No axilla or inguinal lymphadenopathy External genitalia: Deferred Rectal: Deferred - Studies Medications List Reviewed: Yes Assessment and Plan - Problems (Diagnosis) (1) CVA (cerebral vascular accident) Current Visit: Yes Status: Acute - Plan Assessment This is a 53-year-old male presenting with left-sided weakness that started 6 days ago. Brain MRI revealed a moderately sized acute infarct involving the right frontal lobe in the anterior cerebral artery distribution. Patient continued to have left lower extremity weakness, which the radiologist attributes to his acute stroke. He also had a lumbar MRI which revealed severe lumbar stenosis. Acute CVA Lumbar stenosis Plan: 05/15/24 Will admit to inpatient with telemetry. Significantly elevated Troponins. 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 - Advance Directives Does patient have a Living Will: No Does patient have a Durable POA for Healthcare: No - Code Status/Comfort Care Code Status Assessed: Yes (Full) Time Spent Managing PTS Care (In Minutes): 25
--- NOTE | 2024-05-17 10:11 | P.DS ---
Admission Date: 05/04/24 Discharge Date: 05/17/24 Reason for Admission: CVA NSTEMI Brief History of Present Illness: Patient is a 53-year-old -[place] Citizen male currently in custody. He presented to the ER with left-sided weakness ongoing for more than 6 hours. Patient was only brought in today for evaluation. As per ER signout, this began 6 days ago. Patient has been having difficulty walking because of weakness. Workup in the ER revealed a subacute stroke. His vital signs were stable including a blood pressure 146/93. During my evaluation, patient was very lethargic. According to elicit any response. Hospital Course: Patient is a 53-year-old -[place] Citizen male currently in custody. He presented to the ER with left-sided weakness. Patient was only brought in today for evaluation. As per ER signout, this began 6 days ago. Patient has been having difficulty walking because of weakness. Workup in the ER revealed a subacute stroke. Was noted to have left hemiparesis, NSTEMI, no reported chest pain, was evaluated by cardiology, is status post left heart cath, PCI x 2 placed, started on aspirin, Plavix. Plan to discharge for acute care facility for further CVA evaluation and treatment plan. Brain CT Abrupt narrowing of the proximal right A1 segment compatible with occlusion. Brain MRI Moderate-sized acute infarct centered in the medial right frontal lobe in a distribution of the right anteriorcerebral artery. Suspect late acute/early subacute infarct. Question absent right A2 HAYDE flow void. CTA or MRA could confirm. NSTEMI 05/08 Status post heart cath, Coronary angiogram done and s/p PCI LAD and LCX start, Plavix, aspirin Speech therapy eval There were no overt s/s of aspiration or dysphagia. The patient's speech was 100% intelligible and there was no aphasia noted. The patient can continue his current diet. ST intervention is not warranted at this time. We are attempting transfer to [facility] as patient is a prisoner and needing to be placed in rehab. At this time, we will wait on bed placement and once we get bed placement patient should be stable for transfer. <Magdalena Cotton - Last Filed: 05/17/24 10:34> Admission Date: 05/04/24 Discharge Date: 05/17/24 Hospital Course: Pt seen and examined. I agree with the note by the LICENSED LOAN OFFICER. Pt had cardiac cath, s/p PCI x2. He also has left sided weakness due to moderate-sized acute infarct centered in the medial right frontal lobe in a distribution of the right anteriorcerebral artery on MRI brain. Continue aspirin, statin and plavix. Pt is waitingf or transfer to [facility]. <Brooke Puente Lexi - Last Filed: 05/17/24 14:40> Disposition: TRANSFER TO [facility] Discharge Condition: FAIR Vital Signs/Physical Exam: Temp Pulse Resp BP Pulse Ox 98.0 F 68 16 114/69 99 05/17/24 08:00 05/17/24 08:00 05/17/24 08:00 05/17/24 08:00 05/17/24 08:00 General: Alert, In no apparent distress, Oriented x3 HEENT: Atraumatic, Normocephalic Neck: Supple Respiratory: Normal air movement Cardiovascular: Normal pulses, Regular rate/rhythm, Normal S1 S2 Capillary refill: <2 Seconds Gastrointestinal: Normal bowel sounds, Soft and benign Musculoskeletal: No clubbing Integumentary: No rashes Neurological: Normal speech, Normal tone, Normal affect, Other (not able to move left leg) Lymphatics: No axilla or inguinal lymphadenopathy External genitalia: Deferred Rectal: Deferred Laboratory Data at Discharge: WBC 7.90 thou/uL (4.3-10.9) 05/15/24 09:59 Hgb 13.1 g/dL (13.6-17.9) L 05/15/24 09:59 Hct 40.0 % (39.6-49.0) 05/15/24 09:59 Plt Count 385 thou/uL (152-406) 05/15/24 09:59 Sodium 137 mEq/L (136-145) 05/15/24 09:59 Potassium 3.9 mEq/L (3.5-5.1) 05/15/24 09:59 BUN 14 mg/dL (7-18) 05/15/24 09:59 Creatinine 0.88 mg/dL (0.70-1.30) 05/15/24 09:59 Glucose 101 mg/dL (74-106) 05/15/24 09:59 Phosphorus 3.8 mg/dL (2.5-4.9) 05/15/24 09:59 Magnesium 2.0 mg/dL (1.6-2.4) 05/15/24 09:59 Total Bilirubin 0.3 mg/dL (0.2-1.0) 05/10/24 05:42 AST 23 U/L (15-37) 05/10/24 05:42 ALT 29 U/L (16-61) 05/10/24 05:42 Alkaline Phosphatase 64 U/L (45-117) 05/10/24 05:42 Triglycerides 76 mg/dL (<150) 05/05/24 05:23 Cholesterol 140 mg/dL (<200) 05/05/24 05:23 HDL Cholesterol 31 mg/dL (40-60) L 05/05/24 05:23 Cholesterol/HDL Ratio 4.52 05/05/24 05:23 <Cotton,Magdalena Mumtaz - Last Filed: 05/17/24 10:34> Vital Signs/Physical Exam: Temp Pulse Resp BP Pulse Ox 97.2 F 55 18 118/69 96 05/17/24 12:00 05/17/24 12:00 05/17/24 12:00 05/17/24 12:00 05/17/24 12:00 Laboratory Data at Discharge: WBC 7.90 thou/uL (4.3-10.9) 05/15/24 09:59 Hgb 13.1 g/dL (13.6-17.9) L 05/15/24 09:59 Hct 40.0 % (39.6-49.0) 05/15/24 09:59 Plt Count 385 thou/uL (152-406) 05/15/24 09:59 Sodium 137 mEq/L (136-145) 05/15/24 09:59 Potassium 3.9 mEq/L (3.5-5.1) 05/15/24 09:59 BUN 14 mg/dL (7-18) 05/15/24 09:59 Creatinine 0.88 mg/dL (0.70-1.30) 05/15/24 09:59 Glucose 101 mg/dL (74-106) 05/15/24 09:59 Phosphorus 3.8 mg/dL (2.5-4.9) 05/15/24 09:59 Magnesium 2.0 mg/dL (1.6-2.4) 05/15/24 09:59 Total Bilirubin 0.3 mg/dL (0.2-1.0) 05/10/24 05:42 AST 23 U/L (15-37) 05/10/24 05:42 ALT 29 U/L (16-61) 05/10/24 05:42 Alkaline Phosphatase 64 U/L (45-117) 05/10/24 05:42 Triglycerides 76 mg/dL (<150) 05/05/24 05:23 Cholesterol 140 mg/dL (<200) 05/05/24 05:23 HDL Cholesterol 31 mg/dL (40-60) L 05/05/24 05:23 Cholesterol/HDL Ratio 4.52 05/05/24 05:23 <Brooke Puente - Last Filed: 05/17/24 14:40> Diet: AHA Activity: Fall precautions <Magdalena Cotton - Last Filed: 05/17/24 10:34> <Brooke Puente - Last Filed: 05/17/24 14:40> Home Medications: Amlodipine [Norvasc*] 10 mg PO DAILY 05/05/24 Aspirin [Aspirin EC 81 MG] 81 mg PO DAILY #90 tab 05/17/24 Atorvastatin Calcium [Lipitor] 40 mg PO BEDTIME #90 tab 05/17/24 Clopidogrel Bisulfate [Plavix] 75 mg PO DAILY #90 tab 05/17/24 Hydrochlorothiazide 25 mg PO DAILY 05/17/24 Losartan Potassium [Cozaar] 100 mg PO DAILY 05/17/24 Losartan/Hydrochlorothiazide [Losartan-Hctz 50-12.5 mg Tab] 1 each PO DAILY #90 tab 05/17/24 Metoprolol Succinate [Toprol Xl] 25 mg PO BID #180 tab 05/17/24 Metoprolol Succinate [Toprol Xl] 100 mg PO DAILY 05/17/24 Sertraline [Zoloft] 200 mg PO DAILY 05/17/24 New Medications: Aspirin [Aspirin EC 81 MG] 81 mg PO DAILY #90 tab Atorvastatin Calcium [Lipitor] 40 mg PO BEDTIME #90 tab Losartan/Hydrochlorothiazide [Losartan-Hctz 50-12.5 mg Tab] 1 each PO DAILY #90 tab Clopidogrel Bisulfate [Plavix] 75 mg PO DAILY #90 tab Metoprolol Succinate [Toprol Xl] 25 mg PO BID #180 tab Physician Discharge Instructions: Patient is a 53-year-old -[place] Citizen male currently in custody. He presented to the ER with left-sided weakness. Patient was only brought in today for evaluation. As per ER signout, this began 6 days ago. Patient has been having difficulty walking because of weakness. Workup in the ER revealed a subacute stroke. Was noted to have left hemiparesis, NSTEMI, no reported chest pain, was evaluated by cardiology, is status post left heart cath, PCI x 2 placed, started on aspirin, Plavix. Plan to discharge for acute care facility for further CVA evaluation and treatment plan. Brain CT Abrupt narrowing of the proximal right A1 segment compatible with occlusion. Brain MRI Moderate-sized acute infarct centered in the medial right frontal lobe in a distribution of the right anteriorcerebral artery. Suspect late acute/early subacute infarct. Question absent right A2 HAYDE flow void. CTA or MRA could confirm. NSTEMI 05/08 Status post heart cath, Coronary angiogram done and s/p PCI LAD and LCX start, Plavix, aspirin Speech therapy eval There were no overt s/s of aspiration or dysphagia. The patient's speech was 100% intelligible and there was no aphasia noted. The patient can continue his current diet. ST intervention is not warranted at this time. Medications at discharge Aspirin 81 mg Plavix 75 mg daily Lipitor 40 mg Toprol XL and losartan losartan/hctz Assessment Arterial ischemic stroke, MCA (middle cerebral artery), left hemiparesis, acute fall precaution Was evaluated by PT, speech eval, fall precaution-plan to discharge to [facility] for rehab, PT OT resident of [facility] DDD as needed analgesia left-sided radiculopathy fall precaution Multilevel degenerative disc disease which is most advanced at L4-5 where there is moderate central spinal stenosis, moderate bilateral neural foraminal narrowing, and subarticular zone narrowing. NSTEMI (non-ST elevated myocardial infarction) 05/08 Status post heart cath, Coronary angiogram done and s/p PCI LAD and LCX Troponin elevated and down trending, patient had a recent stroke but cleared for anticoagulation. ASA 81 mg daily, lipitor 40 mg daily HTN (hypertension) uncontrolled-continue toprol xl and losartan/hctz HLD (hyperlipidemia)-continue lipitor 40 mg daily echo NORMAL LEFT VENTRICULAR SYSTOLIC FUNCTION. LEFT VENTRICULAR EJECTION FRACTION 60-65%. NORMAL WALL MOTION. 2. NORMAL DIASTOLIC FUNCTION. Continue home medicines as previously prescribed GOAL: Clear understanding of disease process, needs for frequent position changes, heel protectors, and skin breakdown prevention reiterated many times INSTRUCTIONS: Physician Discharge Instructions: -Follow-up with PCP in 1 to 2 weeks -Please call Dr. Schrader at [phone] if any questions regarding hospital stay -Please call nursing station at [phone] if any nursing or medication questions -Return to the emergency room if symptoms worsen Diet: ADA, low sodium Activity: Fall precautions Followup: Michael Harris MD [ASSOCIATE-ACTIVE - CAN ADMIT] - Gaston Branch MD [ACTIVE - CAN ADMIT] - NONE,NONE [Primary Care Provider] -
[2024-05-19] MEDS: CODEINE 30MG/APAP 300MG TAB PO PRN (05:17)
[2024-05-19 09:25] VITALS: O2SAT 96
--- NOTE | 2024-05-19 10:00 | P.PN ---
Subjective Date of Service: 05/18/24 Chief Complaint: CVA NSTEMI Pt is resting comfortably in bed. He is in hand cuffs. Pt denies any chest pain but still has left sided weakness. Waiting for transfer to [facility]. No other complaints. Review of Systems General: Unremarkable Eyes: Unremarkable ENT: Unremarkable Respiratory: Unremarkable Cardiovascular: Unremarkable Gastrointestinal: Unremarkable Genitourinary: Unremarkable Musculoskeletal: Unremarkable Integumentary: Unremarkable Neurological: Weakness Lymphatics: Unremarkable Physical Examination - Vital Signs Temperature: 97.1 F Blood Pressure: 106/62 Pulse: 53 Respirations: 16 Pulse Ox (%): 96 - Physical Exam General: Alert, In no apparent distress, Oriented x3 HEENT: Atraumatic, Normocephalic, PERRLA Neck: Supple, 2+ carotid pulse no bruit, JVD not distended Respiratory: Clear to auscultation bilaterally, Normal air movement Cardiovascular: No edema, Normal pulses, Regular rate/rhythm, Normal S1 S2 Capillary refill: <2 Seconds Gastrointestinal: Normal bowel sounds, Soft and benign, Non-distended Musculoskeletal: No clubbing, No swelling, No contractures Integumentary: No rashes, No breakdown, No significant lesion, No tenderness/swelling Neurological: Normal gait, Normal speech, Normal strength at 5/5 x4 extr Lymphatics: No axilla or inguinal lymphadenopathy - Studies Medications List Reviewed: Yes Assessment And Plan - Plan Acute CVA: Pt has left sided weakness. Will continue aspirin, atorvastatin and plavix. Continue PT/OT Lumbar stenosis: Pt needs neurosurgery evaluation. NSTEMI: Pt had elevated troponin. S/p cardiac cath and stenet placement x2. Will continue aspirin and plavix. DVT ppx: SCD Code: Full code Dispo: Patient could not be transferred to [facility] since they're at capacity, 05/16/24 awaiting transport to [facility]
--- NOTE | 2024-05-19 10:03 | P.PN ---
Subjective Date of Service: 05/19/24 Chief Complaint: CVA NSTEMI Pt is resting comfortably in bed. He is in hand cuffs and also chained on his legs. Pt denies any chest pain but still has left sided weakness. Waiting for transfer to [facility]. No other complaints. Review of Systems General: Unremarkable Eyes: Unremarkable ENT: Unremarkable Respiratory: Unremarkable Cardiovascular: Unremarkable Gastrointestinal: Unremarkable Genitourinary: Unremarkable Musculoskeletal: Unremarkable Integumentary: Unremarkable Neurological: Weakness Lymphatics: Unremarkable Physical Examination - Vital Signs Temperature: 97.1 F Blood Pressure: 106/62 Pulse: 53 Respirations: 16 Pulse Ox (%): 96 - Physical Exam General: Alert, In no apparent distress, Oriented x3, Oriented x2 HEENT: Atraumatic, Normocephalic, PERRLA Neck: Supple, 2+ carotid pulse no bruit, JVD not distended Respiratory: Clear to auscultation bilaterally, Normal air movement Cardiovascular: No edema, Normal pulses, Regular rate/rhythm Capillary refill: <2 Seconds Gastrointestinal: Normal bowel sounds, Soft and benign, Non-distended Musculoskeletal: No clubbing, No swelling, No contractures Integumentary: No rashes, No breakdown, No significant lesion Neurological: Normal gait, Normal speech, Normal tone, Sensation intact, Abnormal strength Lymphatics: No axilla or inguinal lymphadenopathy - Studies Medications List Reviewed: Yes Assessment And Plan - Plan Acute CVA: Pt has left sided weakness. Will continue aspirin, atorvastatin and plavix. Continue PT/OT Lumbar stenosis: Pt needs neurosurgery evaluation. NSTEMI: Pt had elevated troponin. S/p cardiac cath and stenet placement x2. Will continue aspirin and plavix. Htn: continue metoprolol and losartan / HCTZ DVT ppx: SCD Code: Full code Dispo: Patient could not be transferred to [facility] since they're at capacity, 05/16/24 awaiting transport to [facility]
[2024-05-19 21:55] VITALS: BP 114/65; TEMP 97.1
== END 2024-05-19 20:40 | disposition short-term general hospital (02) | DRG 981 ==
LOC: ER 17:31 → ERHOLD 22:06 → EEVIPCON 22:06 → 2ND 05-05 03:53 → 4TH 05-17 17:15
PROVIDERS: ADMIT Internal Medicine; ATTEND Hospitalist
PROC: 4A033R1 Measurement of Arterial Saturation, Peripheral, Percutaneous Approach (ICD-10-PCS; 2024-05-04)
PROC: 027135Z Dilation of Coronary Artery, Two Arteries with Two Drug-eluting Intraluminal Devices, Percutaneous Approach (ICD-10-PCS; principal; 2024-05-08)
PROC: 4A023N7 Measurement of Cardiac Sampling and Pressure, Left Heart, Percutaneous Approach (ICD-10-PCS; 2024-05-08)
PROC: B2111ZZ Fluoroscopy of Multiple Coronary Arteries using Low Osmolar Contrast (ICD-10-PCS; 2024-05-08)
DX: I63.9 Cerebral infarction, unspecified (principal); I21.4 Non-ST elevation (NSTEMI) myocardial infarction; G81.94 Hemiplegia, unspecified affecting left nondominant side; E78.5 Hyperlipidemia, unspecified; I10 Essential (primary) hypertension; M48.061 Spinal stenosis, lumbar region without neurogenic claudication; M51.16 Intervertebral disc disorders with radiculopathy, lumbar region; R29.702 NIHSS score 2; Z79.899 Other long term (current) drug therapy; Z23 Encounter for immunization
CPT/HCPCS: 36415; 36600; 70496; 70498; 70551; 72148; 76937; 80048; 80053; 80061; 80069; 81001; 82140; 82805; 82947; 83036; 83605; 83735; 83880; 84100; 84484; 85025; 85347; 92610; 92928; 92929; 93005; 93306; 93454; 94760; 96365; 96366; 97110; 97112; 97116; 97161; 97165; 97530; 99152; 99153; 99285; C1725; C1893; J0360; J0461; J1644; J1650; J2003; J2250; J3010; J7030; J7040; Q9967